=== PATIENT | male | born 1945 ===

== ENCOUNTER 2019-10-05 15:16 | Inpatient (IN) | payer MEDICARE ==
[2019-10-05] MEDS: Latanoprost 0.005% Ophth Soln 2.5 ml Bottle EA EYE SCH (21:00)
[2019-10-05] MEDS: Artificial Tear Sol 15 ML BOT L EYE SCH (21:00)
[2019-10-05] MEDS: Rosuvastatin 10 MG TAB PO SCH (21:00)
[2019-10-05] MEDS: levETIRAcetam 500 mg/5 ml Oral Solution PO SCH (21:01)
[2019-10-05] MEDS: CEFPODOXIME PROXETIL 200 MG PO SCH (21:06)
[2019-10-05] MEDS: VORICONAZOLE 200 MG PO SCH (21:06)
[2019-10-06 00:44] LABS: Bilirubin Negative (Negative); Blood, Urine Negative (Negative); Clarity Clear (Clear); Glucose, Urine (Dipstick) Negative (Negative); Leukocyte Negative (Negative); Nitrite Negative (Negative); Protein, Urine (Dipstick) Negative (Neg-Trace); Urobilinogen 0.2 mg/dL (Less than 2)
[2019-10-06 00:48] LABS: Bacteria/HPF None Seen HPF (None Seen); RBC/HPF None Seen HPF (0-3); Squamous Epithelial 0-3 HPF (0-3); Urine Culture Reflex No No; WBC/HPF None Seen HPF (0-3)
[2019-10-06 05:39] LABS: ALT (SGPT) 12 U/L (8-55); AST (SGOT) 19 U/L (5-34); Albumin 3.1 g/dL (3.4-4.8); Alkaline Phosphatase 94 U/L (40-110); Anion Gap 14 mmol/L (10-20); BUN (Urea Nitrogen) 16 mg/dL (8.4-25.7); Bilirubin, Total 0.4 mg/dL (0.2-1.2); Calc. Creatinine Clearance 84 mL/min (70-130); Carbon Dioxide 23 mmol/L (23-31); Chloride 105 mmol/L (98-107); Estimated GFR-MDRD 66; Globulin 1.9 g/dL (2.4-3.5); Glucose 110 mg/dL (83-110); Sodium 138 mmol/L (136-145)
[2019-10-06] MEDS: levETIRAcetam 500 mg/5 ml Oral Solution PO SCH ×2 (08:48→20:56)
[2019-10-06] MEDS: valACYclovir 500 MG TAB PO SCH (08:49)
[2019-10-06] MEDS: VENETOCLAX 100 MG PO SCH (08:51)
[2019-10-06] MEDS: CEFPODOXIME PROXETIL 200 MG PO SCH ×2 (08:52→20:56)
[2019-10-06] MEDS: PONATINIB HCL PO SCH (08:53)
[2019-10-06] MEDS: VORICONAZOLE 200 MG PO SCH ×2 (08:54→20:55)
--- NOTE | 2019-10-06 18:41 | HP ---
PRINCIPAL DIAGNOSIS: Persistent deconditioning, for physical therapy. HISTORY OF PRESENTING ILLNESS: This is a pleasant 74-year-old male, who was recently at [facility] in [place] and was discharged to home. He apparently has not been able to do his activities of daily living without significant help, and his son felt that he may benefit from some more therapy, and so, it was decided to admit him directly to skilled bed. The patient is currently resting in bed, and he denies any complaints. His family is not in the room. PAST MEDICAL HISTORY: 1. Paraneoplastic syndrome. 2. History of DVT, status post IVC filter placement. 3. History of pulmonary embolism. 4. Acute lymphocytic leukemia. 5. Chemotherapy-induced neuropathy and myopathy. 6. Anemia of chronic disease. 7. Glaucoma. 8. Dyslipidemia. 9. Seizure disorder. PAST SURGICAL HISTORY: 1. IVC filter placement. 2. Stem-cell transplantation. PSYCHOSOCIAL HISTORY: He lives in the [facility]. Denies any current tobacco, alcohol, or recreational drug abuse. FAMILY HISTORY: Positive for chronic kidney disease and congestive heart failure. ALLERGIES: NO KNOWN DRUG ALLERGIES. MEDICATIONS: He apparently takes: 1. Valtrex 500 mg daily. 2. Keppra 750 mg b.i.d. 3. Protonix 40 mg b.i.d. 4. Iclusig 15 mg daily. 5. Oxycodone 10 mg q.8 hours. 6. Voriconazole 200 mg b.i.d. 7. Travatan eye drops at bedtime. 8. Crestor 5 mg daily. 9. Metoprolol succinate 12.5 mg b.i.d. REVIEW OF SYSTEMS: CARDIOVASCULAR: Denies any chest pain, shortness of breath, PND, orthopnea, or pedal edema. RESPIRATORY: Denies any chronic cough, expectoration, or pleuritic-type chest pain. GASTROINTESTINAL: Denies any nausea, vomiting, diarrhea, constipation, hematemesis, melena, or hematochezia. GENITOURINARY: Denies any frequency, urgency, dysuria, or hematuria. CENTRAL NERVOUS SYSTEM: Generalized weakness. He also had some episodes of lower extremity weakness, which is slowly improving. Denies any recent seizures. EXTREMITIES: Occasional joint pains. HEENT: Denies any changes with speech, vision, hearing, or swallowing. SKIN: Denies any rash. PSYCHIATRIC: Denies any homicidal or suicidal ideations. Denies any depressive or anxiety symptoms. PHYSICAL EXAMINATION: GENERAL: This is a pleasant 74-year-old male, who is resting comfortably in bed and denies any complaints. He is alert, awake, and oriented. VITAL SIGNS: He is afebrile. Heart rate 80, respirations 18, oxygen saturation 95% on room air, blood pressure 108/55. HEENT: Normocephalic and atraumatic. Pupils are equally reactive to light and accommodation. NECK: No JVD, thyromegaly, cervical lymphadenopathy, or throat exudates. No carotid bruits. CARDIOVASCULAR: S1 and S2 plus. RESPIRATORY: Normal vesicular breath sounds. ABDOMEN: Soft and nontender. Bowel sounds heard in all quadrants. EXTREMITIES: Without cyanosis or clubbing. Trace edema. Peripheral pulses are palpable. CENTRAL NERVOUS SYSTEM: Awake and responsive. Cranial nerves 2 through 12 grossly intact. Generalized weakness. LABORATORY VALUES: Sodium 138, potassium 4.0, BUN and creatinine 16 and 1.10. Urinalysis, unremarkable. He was supposed to get a CBC, which was not done. IMPRESSION: 1. Possible resolving urinary tract infection. 2. Acute lymphocytic leukemia. 3. Chemotherapy-induced neuropathy and myopathy. 4. Seizure disorder. 5. Dyslipidemia. 6. History of deep venous thrombosis and pulmonary embolism. PLAN: 1. Continue home medications. 2. Nutritional support. 3. DVT prophylaxis with PlexiPulses. 4. Decubitus precautions. 5. Stress ulcer prophylaxis. 6. PT and OT eval and treat. 7. Routine laboratory values. 8. Discussed with the patient in detail. All questions answered. 9. No family at bedside. Job ID: [id number]
[2019-10-06] MEDS: Latanoprost 0.005% Ophth Soln 2.5 ml Bottle EA EYE SCH (20:55)
[2019-10-06] MEDS: Artificial Tear Sol 15 ML BOT L EYE SCH (20:55)
[2019-10-06] MEDS: Rosuvastatin 10 MG TAB PO SCH (20:58)
[2019-10-07 05:46] LABS: Band 6 % (5-11); Hemoglobin 9.2 g/dL (14.0-18.0); Hypochromia MODERATE=16-30 cells (100X) (0-5/hpf); Lymphocytes 28 % (21-51); MDiff Complete? YES; Mean Corpuscular HGB CONC 32.8 g/dL (32.0-36.0); Mean Corpuscular Hemoglobin 27.5 pg (27.0-31.0); Mean Corpuscular Volume 83.9 fL (78.0-98.0); Mean Platelet Volume 7.6 fL (7.4-10.4); Microcytosis MODERATE=15-30 cells (100X) (0-5/hpf); Monocytes 24 % (0-10); Neutrophil 42 % (42-75); Ovalocytes MODERATE= 6-15 cells (100X) (0-1/hpf); Platelet Count 68 thou/uL (130-400); Platelet Morphology Comment Appears Decreased; RBC Distribution Width 17.2 % (11.5-14.5); Red Blood Cell (RBC) Count 3.35 mill/uL (4.70-6.10); Spherocytes SLIGHT = 1-5 cells (100X) (None Seen); Tear Drops SLIGHT = 2-5 cells (100X) (0-1/hpf)
[2019-10-07] MEDS: valACYclovir 500 MG TAB PO SCH (08:00)
[2019-10-07] MEDS: levETIRAcetam 500 mg/5 ml Oral Solution PO SCH ×2 (08:01→21:26)
[2019-10-07] MEDS: PONATINIB HCL PO SCH (08:02)
[2019-10-07] MEDS: VORICONAZOLE 200 MG PO SCH ×2 (08:03→21:22)
[2019-10-07] MEDS: VENETOCLAX 100 MG PO SCH (08:04)
[2019-10-07] MEDS: CEFPODOXIME PROXETIL 200 MG PO SCH ×2 (10:21→21:23)
[2019-10-07] MEDS ORDERED: Chloraseptic Spray 180 ml Bottle PO PRN (14:49)
--- NOTE | 2019-10-07 15:22 | PRG ---
DATE OF SERVICE: 10/07/2019 SUBJECTIVE: Mr. Gao is resting comfortably. He is noticing occasional sore throat. He states it is worse in the morning, but then it gets better. He denies any fever or chills. He apparently had an appointment at [facility], which he canceled. Apparently, he spoke with his oncologist and they state that his therapy is more important. OBJECTIVE: VITAL SIGNS: He had a T-max of 100.2, this was last night; this morning, he is afebrile. Heart rate 80, respirations 20, oxygen saturation 96% on room air, blood pressure 99/57. CARDIOVASCULAR: S1 and S2 plus. RESPIRATORY: Normal vesicular breath sounds. ABDOMEN: Soft, nontender. Bowel sounds heard in all quadrants. EXTREMITIES: Without cyanosis or clubbing. CENTRAL NERVOUS SYSTEM: Grossly nonfocal. LABORATORY DATA: CBC done this morning shows a white count of 2, hemoglobin and hematocrit are 9.2 and 28.1 with a platelet count of 68, and 42% bands. IMPRESSION: 1. Acute lymphocytic leukemia. 2. Pancytopenia, likely due to chemotherapy. 3. Generalized weakness. 4. Paraneoplastic syndrome. 5. History of deep venous thrombosis and pulmonary embolism, status post inferior vena cava filter placement. 6. Anemia of chronic disease. 7. Dyslipidemia. 8. Seizure disorder. PLAN: 1. Continue current medications. 2. Nutritional support. 3. Start Chloraseptic spray as needed. 4. Monitor for any signs of infection. 5. Monitor blood counts closely. 6. Continue PT/OT eval and treat. 7. Discussed with the patient in detail. No family at bedside. Also seizure precautions. Job ID: [id number]
[2019-10-07] MEDS: oxyCODONE 5 MG TAB PO PRN (17:03)
[2019-10-07] MEDS: Artificial Tear Sol 15 ML BOT L EYE SCH (21:21)
[2019-10-07] MEDS: Latanoprost 0.005% Ophth Soln 2.5 ml Bottle EA EYE SCH (21:22)
[2019-10-07] MEDS: Rosuvastatin 10 MG TAB PO SCH (21:25)
[2019-10-08] MEDS: levETIRAcetam 500 mg/5 ml Oral Solution PO SCH ×2 (09:37→21:23)
[2019-10-08] MEDS: valACYclovir 500 MG TAB PO SCH (09:37)
[2019-10-08] MEDS: VENETOCLAX 100 MG PO SCH (09:40)
[2019-10-08] MEDS: PONATINIB HCL PO SCH (09:43)
[2019-10-08] MEDS: VORICONAZOLE 200 MG PO SCH ×2 (09:43→23:28)
[2019-10-08] MEDS: CEFPODOXIME PROXETIL 200 MG PO SCH ×2 (09:52→23:29)
--- NOTE | 2019-10-08 13:25 | PRG ---
DATE OF SERVICE: 10/08/2019 SUBJECTIVE: Mr. Gao is up on the side of his bed eating lunch. He denies any questions or concerns. He is happy with his progress. He has full session of therapy this morning. He is wondering if he can go to his oncologist in [place] to get his lumbar puncture versus clinical trial and whether he can be laid out and I advised him that should not be an issue. I discussed with him about code status and right now he states that unless we can deem him to not recover he wants everything done, so we will leave him a full code. OBJECTIVE: VITAL SIGNS: The patient is afebrile, heart rate 77, respirations 18, oxygen saturation 95% on room air, and blood pressure 100/55. CARDIOVASCULAR: S1 and S2 plus. RESPIRATORY: Normal vesicular breath sounds. ABDOMEN: Soft and nontender. Bowel sounds heard in all quadrants. EXTREMITIES: Without cyanosis or clubbing. SKIN: Scalp lesion with dressing. IMPRESSION: 1. Acute lymphocytic leukemia. 2. Anemia of chronic disease. 3. Pancytopenia, likely related to chemotherapy. 4. Deconditioning. 5. Paraneoplastic syndrome. 6. History of deep venous thrombosis and pulmonary embolism. 7. Dyslipidemia. 8. Seizure disorder. PLAN: 1. Continue current medications. We will check with the patient as to how long he is supposed on the antibiotic. 2. Nutritional support. 3. Seizure precautions. 4. DVT and stress ulcer prophylaxis. 5. Decubitus precautions. 6. Physical therapy. 7. Recheck CBC in the morning. Job ID: [id number]
[2019-10-08] MEDS: Artificial Tear Sol 15 ML BOT L EYE SCH (21:22)
[2019-10-08] MEDS: Latanoprost 0.005% Ophth Soln 2.5 ml Bottle EA EYE SCH (21:23)
[2019-10-08] MEDS: Rosuvastatin 10 MG TAB PO SCH (21:24)
[2019-10-09 06:51] LABS: Hemoglobin 12.2 g/dL (14.0-18.0); Mean Corpuscular HGB CONC 33.4 g/dL (32.0-36.0); Mean Corpuscular Volume 83.7 fL (78.0-98.0); Mean Platelet Volume 8.3 fL (7.4-10.4); Platelet Count 51 thou/uL (130-400); RBC Distribution Width 17.6 % (11.5-14.5); Red Blood Cell (RBC) Count 4.37 mill/uL (4.70-6.10); White Blood Cell (WBC) Count 2.7 thou/uL (4.8-10.8)
[2019-10-09 07:04] LABS: Band 2 % (5-11); Lymphocytes 21 % (21-51); MDiff Complete? YES; Monocytes 13 % (0-10); Neutrophil 64 % (42-75); Platelet Morphology Comment Appears Decreased
[2019-10-09 07:55] LABS: Anisocytosis SLIGHT = 6-15 cells (100X) (0-5/hpf)
[2019-10-09 07:56] LABS: Hypochromia SLIGHT = 6-15 cells (100X) (0-5/hpf); Ovalocytes SLIGHT = 2-5 cells (100X) (0-1/hpf); Spherocytes SLIGHT = 1-5 cells (100X) (None Seen)
[2019-10-09 07:57] LABS: Microcytosis SLIGHT = 6-15 cells (100X) (0-5/hpf)
[2019-10-09] MEDS: levETIRAcetam 500 mg/5 ml Oral Solution PO SCH ×2 (08:48→20:43)
[2019-10-09] MEDS: valACYclovir 500 MG TAB PO SCH (08:48)
[2019-10-09] MEDS: VORICONAZOLE 200 MG PO SCH ×2 (08:49→20:45)
[2019-10-09] MEDS: PONATINIB HCL PO SCH (08:49)
[2019-10-09] MEDS: CEFPODOXIME PROXETIL 200 MG PO SCH ×2 (08:49→20:45)
[2019-10-09] MEDS: VENETOCLAX 100 MG PO SCH (09:02)
--- NOTE | 2019-10-09 13:33 | PRG ---
DATE OF SERVICE: 10/09/2019 SUBJECTIVE: Mr. Gao is resting in bed. He just finished his lunch. He denies any questions or concerns. His oncologist apparently called and wanted one of his chemotherapeutic agents, which is venetoclax discontinued. I checked with him as to why he is on the antibiotic, Vantin, and he said Vantin and the antifungal were started recently when he was diagnosed with UTI. So, plan is to have him finish 7 days of it here and then discontinue the Vantin. We will do a repeat urine culture. OBJECTIVE: VITAL SIGNS: He is afebrile. Heart rate 71, respirations 18, oxygen saturation 95% on room air, blood pressure 118/56. CARDIOVASCULAR: S1 and S2 plus. RESPIRATORY: Normal vesicular breath sounds. ABDOMEN: Soft and nontender. Bowel sounds heard in all quadrants. EXTREMITIES: Without cyanosis or clubbing. CENTRAL NERVOUS SYSTEM: Improving deconditioning. LABORATORY VALUES: His white count is up to 2.7, H and H are much improved at 12.2 and 36.5, platelet count is down at 51. Sodium 138, potassium 4.0, BUN and creatinine 16 and 1.10. IMPRESSION: 1. Acute lymphocytic leukemia. 2. Resolving urinary tract infection. 3. Deconditioning. 4. Improving pancytopenia. 5. Paraneoplastic syndrome. 6. History of deep venous thrombosis and pulmonary embolism. 7. Dyslipidemia. 8. Seizure disorder. PLAN: 1. Continue current medications. 2. Nutritional support. 3. Deep venous thrombosis prophylaxis. 4. Decubitus precautions. 5. Stress ulcer prophylaxis. 6. Physical therapy. 7. Seizure precautions. 8. Stop Vantin after 7 days of therapy here. Job ID: [id number]
[2019-10-09] MEDS: Latanoprost 0.005% Ophth Soln 2.5 ml Bottle EA EYE SCH (20:43)
[2019-10-09] MEDS: Artificial Tear Sol 15 ML BOT L EYE SCH (20:43)
[2019-10-09] MEDS: Rosuvastatin 10 MG TAB PO SCH (20:44)
[2019-10-10] MEDS: levETIRAcetam 500 mg/5 ml Oral Solution PO SCH ×2 (08:25→20:41)
[2019-10-10] MEDS: valACYclovir 500 MG TAB PO SCH (08:27)
[2019-10-10] MEDS: CEFPODOXIME PROXETIL 200 MG PO SCH ×2 (08:30→20:43)
[2019-10-10] MEDS: VORICONAZOLE 200 MG PO SCH ×2 (08:30→20:45)
[2019-10-10] MEDS: PONATINIB HCL PO SCH (08:35)
--- NOTE | 2019-10-10 13:00 | PRG ---
DATE OF SERVICE: 10/10/2019 SUBJECTIVE: Mr. Gao is up in his chair. He is happy with his progress. He feels like he is getting stronger. Apparently, his research trial nurse wants some lab work done. He is not sure what it is. He is going to find out and let us know. I advised him that I have ordered a urine culture to make sure his infection has cleared up before I stop his antibiotic and his antifungal. OBJECTIVE: VITAL SIGNS: He is afebrile. Heart rate 66, respirations 18, oxygen saturation 97%, blood pressure 117/64. CARDIOVASCULAR SYSTEM: S1 and S2 plus. RESPIRATORY SYSTEM: Normal vesicular breath sounds. ABDOMEN: Soft and nontender. Bowel sounds heard in all quadrants. EXTREMITIES: Without cyanosis or clubbing. LABORATORY VALUES: None done today. IMPRESSION: 1. Acute lymphocytic leukemia. 2. History of deep vein thrombosis and pulmonary embolism. 3. Pancytopenia. 4. Improving deconditioning. 5. Paraneoplastic syndrome. 6. Dyslipidemia. 7. Seizure disorder. PLAN: 1. Continue current medications. 2. Nutritional support. 3. DVT prophylaxis. 4. Decubitus precautions. 5. Stress ulcer prophylaxis. 6. Physical therapy. 7. Await urine culture. 8. Await lab orders from his trial nurse. Continue therapy. Job ID: [id number]
[2019-10-10] MEDS: Artificial Tear Sol 15 ML BOT L EYE SCH (20:41)
[2019-10-10] MEDS: Latanoprost 0.005% Ophth Soln 2.5 ml Bottle EA EYE SCH (20:41)
[2019-10-10] MEDS: Rosuvastatin 10 MG TAB PO SCH (20:42)
[2019-10-11] MEDS: levETIRAcetam 500 mg/5 ml Oral Solution PO SCH ×2 (08:27→21:46)
[2019-10-11] MEDS: valACYclovir 500 MG TAB PO SCH (08:28)
[2019-10-11] MEDS: VORICONAZOLE 200 MG PO SCH ×2 (08:28→21:43)
[2019-10-11] MEDS: PONATINIB HCL PO SCH (08:29)
[2019-10-11] MEDS: CEFPODOXIME PROXETIL 200 MG PO SCH ×2 (08:29→21:43)
--- NOTE | 2019-10-11 11:35 | PRG ---
DATE OF SERVICE: 10/11/2019 SUBJECTIVE: Mr. Gao is up in bed. He denies any complaints. Apparently, his clinical trial nurse gave a list of blood work that he has given to the nurses to draw and fax it back. Still has an occasional cough, but no fever or chills. No expectoration. No family at bedside. OBJECTIVE: VITAL SIGNS: He is afebrile. Heart rate 60, respirations 20, oxygen saturation 95% on room air, blood pressure 122/67. CARDIOVASCULAR: S1 and S2 plus. RESPIRATORY: Normal vesicular breath sounds. ABDOMEN: Soft and nontender. Bowel sounds heard in all quadrants. EXTREMITIES: Without cyanosis or clubbing. CENTRAL NERVOUS SYSTEM: Improving deconditioning. IMPRESSION: 1. Acute lymphocytic leukemia. 2. History of deep venous thrombosis and pulmonary embolism. 3. Pancytopenia. 4. Paraneoplastic syndrome. 5. Dyslipidemia. 6. Seizure disorder. PLAN: 1. Continue current medications. 2. Heart-healthy diet. 3. DVT and stress ulcer prophylaxis. 4. Do the lab work requested by the clinical trial nurse and fax it back to them. 5. Physical therapy. 6. Discussed with the patient in detail. All questions answered. Job ID: [id number]
--- NOTE | 2019-10-11 17:57 | RAD ---
PORTABLE CHEST ONE VIEW: 10/11/19 at 5:44 p.m. HISTORY: Cough, left lung wheezing. FINDINGS/IMPRESSION: Pleural and parenchymal changes are redemonstrated. The heart size is stable. The aorta is tortuous. Calcified granuloma in the right lung is again seen. No new focal areas of consolidation, pneumothora prisca, or large effusions are seen. POS: OFF
[2019-10-11] MEDS: Latanoprost 0.005% Ophth Soln 2.5 ml Bottle EA EYE SCH (21:43)
[2019-10-11] MEDS: Artificial Tear Sol 15 ML BOT L EYE SCH (21:43)
[2019-10-11] MEDS: Rosuvastatin 10 MG TAB PO SCH (21:44)
[2019-10-11] MEDS: Oseltamivir 75 MG CAP PO SCH (21:44)
[2019-10-12] MEDS: levETIRAcetam 500 mg/5 ml Oral Solution PO SCH ×2 (08:57→21:17)
[2019-10-12] MEDS: Oseltamivir 75 MG CAP PO SCH ×2 (09:00→21:18)
[2019-10-12] MEDS: valACYclovir 500 MG TAB PO SCH (09:00)
[2019-10-12] MEDS: CEFPODOXIME PROXETIL 200 MG PO SCH ×2 (09:04→21:16)
[2019-10-12] MEDS: VORICONAZOLE 200 MG PO SCH ×2 (09:07→21:16)
[2019-10-12] MEDS: PONATINIB HCL PO SCH (15:28)
[2019-10-12] MEDS: Latanoprost 0.005% Ophth Soln 2.5 ml Bottle EA EYE SCH (21:13)
[2019-10-12] MEDS: Artificial Tear Sol 15 ML BOT L EYE SCH (21:13)
[2019-10-12] MEDS: Rosuvastatin 10 MG TAB PO SCH (21:17)
[2019-10-13] MEDS: VORICONAZOLE 200 MG PO SCH ×2 (08:47→20:43)
[2019-10-13] MEDS: CEFPODOXIME PROXETIL 200 MG PO SCH ×2 (08:48→20:43)
[2019-10-13] MEDS: valACYclovir 500 MG TAB PO SCH (08:49)
[2019-10-13] MEDS: PONATINIB HCL PO SCH (08:49)
[2019-10-13] MEDS: levETIRAcetam 500 mg/5 ml Oral Solution PO SCH ×2 (08:50→20:40)
[2019-10-13] MEDS: Oseltamivir 75 MG CAP PO SCH ×2 (08:50→20:42)
--- NOTE | 2019-10-13 09:56 | PRG ---
DATE OF SERVICE: 10/12/2019 SUBJECTIVE: The patient feels well with decreasing cough, myalgias. No fever or chills, on Tamiflu for documented influenza A with chest x-ray showing no evidence of pneumonia. OBJECTIVE: VITAL SIGNS: Shows temperature is 96.7, pulse 59, respirations 20, O2 sats 98% on room air, and blood pressure 104/60. LUNGS: Clear. CARDIAC: Shows regular rhythm. ABDOMEN: Soft and nontender. ASSESSMENT: 1. Resolving influenza A on Tamiflu in isolation. 2. Acute lymphocytic leukemia, status post chemotherapy in isolation. 3. History of deep venous thrombosis and pulmonary embolism, on no anticoagulation secondary to no recurrence. 4. Chemotherapy-induced neuropathy and myopathy, resolving. 5. IVC placement. PLAN: 1. Continue Tamiflu for full 5-day course. 2. Continue isolation. 3. Follow up with [facility] when stronger. 4. Continue prophylaxis with Valtrex and voriconazole. 5. Repeat CBC to document stable blood count. Job ID: [id number]
--- NOTE | 2019-10-13 09:56 | PRG ---
DATE OF SERVICE: 10/13/2019 HISTORY OF PRESENT ILLNESS: The patient is a 74-year-old white male with a history of acute lymphocytic leukemia, had difficulty maintaining ADLs after chemotherapy induced neuropathy and myopathy and has been found to have new diagnosis of influenza A, which is responding to treatment and he is preparing for discontinuation of isolation and reinstitution of PT. OBJECTIVE: VITAL SIGNS: Temperature is 96.5, pulse 65, respirations 18, O2 saturations 94% on room air, blood pressure 123/61. LUNGS: Clear. CARDIAC: Regular rhythm. ABDOMEN: Soft, nontender. SKIN/EXTREMITIES: No edema. ASSESSMENT: 1. Resolving influenza A. 2. Stable acute lymphocytic leukemia, status post chemotherapy with repeat CBC and comprehensive metabolic today. 3. Improving deconditioning, ready for more therapy tomorrow. Job ID: [id number]
[2019-10-13 11:05] LABS: ALT (SGPT) 11 U/L (8-55); AST (SGOT) 21 U/L (5-34); Albumin 3.3 g/dL (3.4-4.8); Alkaline Phosphatase 137 U/L (40-110); Anion Gap 14 mmol/L (10-20); BUN (Urea Nitrogen) 11 mg/dL (8.4-25.7); Bilirubin, Total 0.4 mg/dL (0.2-1.2); Calc. Creatinine Clearance 129 mL/min (70-130); Calcium 8.1 mg/dL (7.8-10.44); Carbon Dioxide 22 mmol/L (23-31); Chloride 111 mmol/L (98-107); Estimated GFR-MDRD Greater than 90; Globulin 2.2 g/dL (2.4-3.5); Glucose 109 mg/dL (83-110); Potassium 4.2 mmol/L (3.5-5.1); Protein, Total 5.5 g/dL (5.8-8.1); Sodium 143 mmol/L (136-145)
[2019-10-13 11:43] LABS: Hemoglobin 10.8 g/dL (14.0-18.0); Mean Corpuscular HGB CONC 32.7 g/dL (32.0-36.0); Mean Corpuscular Hemoglobin 27.6 pg (27.0-31.0); Mean Corpuscular Volume 84.5 fL (78.0-98.0); Mean Platelet Volume 10.1 fL (7.4-10.4); Platelet Count 85 thou/uL (130-400); RBC Distribution Width 17.9 % (11.5-14.5); Red Blood Cell (RBC) Count 3.89 mill/uL (4.70-6.10); White Blood Cell (WBC) Count 2.9 thou/uL (4.8-10.8)
[2019-10-13 12:13] LABS: Anisocytosis MODERATE=16-30 cells (100X) (0-5/hpf); Lymphocytes 33 % (21-51); MDiff Complete? YES; Microcytosis SLIGHT = 6-15 cells (100X) (0-5/hpf); Monocytes 8 % (0-10); Neutrophil 59 % (42-75); Ovalocytes MODERATE= 6-15 cells (100X) (0-1/hpf); Platelet Morphology Comment Appears Decreased
[2019-10-13] MEDS: Latanoprost 0.005% Ophth Soln 2.5 ml Bottle EA EYE SCH (20:38)
[2019-10-13] MEDS: oxyCODONE 5 MG TAB PO PRN (20:39)
[2019-10-13] MEDS: Artificial Tear Sol 15 ML BOT L EYE SCH (20:39)
[2019-10-13] MEDS: Rosuvastatin 10 MG TAB PO SCH (20:42)
[2019-10-14] MEDS ORDERED: Metoprolol Tartrate 25 MG TAB ONE ×2 (07:58→20:11)
[2019-10-14] MEDS: Oseltamivir 75 MG CAP PO SCH ×2 (09:32→21:06)
[2019-10-14] MEDS: valACYclovir 500 MG TAB PO SCH (09:32)
[2019-10-14] MEDS: levETIRAcetam 500 mg/5 ml Oral Solution PO SCH ×2 (09:33→21:04)
[2019-10-14] MEDS: CEFPODOXIME PROXETIL 200 MG PO SCH ×2 (09:40→21:07)
[2019-10-14] MEDS: VORICONAZOLE 50 MG PO SCH ×2 (09:41→21:06)
[2019-10-14] MEDS: PONATINIB HCL PO SCH (09:43)
--- NOTE | 2019-10-14 20:22 | PRG ---
DATE OF SERVICE: 10/14/[address] Yuko Braswell. SUBJECTIVE: The patient feels much better. No further cough. No shortness of breath. He is maintaining ADLs in isolation and is ready to do more therapy. He has underlying history of acute lymphocytic leukemia with chemotherapy-induced neuropathy and myopathy and is wishing to increase his strength. OBJECTIVE: VITAL SIGNS: Shows temperature is 98, pulse 62, respirations 16, O2 saturations 98% on room air, blood pressure 128/68. LABORATORY DATA: White count 2900, hematocrit 32, hemoglobin 10, platelet count 85,000 all improving. Sodium 143, potassium 4.2, chloride 111, bicarb 22, BUN 11, creatinine 0.72, glucose 109, calcium 8.1, AST 21, ALT 11, albumin 3.3, total protein 5.5, globulin 2.2. ASSESSMENT: 1. Resolving influenza A on Tamiflu third day. No further cough. No sweats, chills, or fever. 2. Chemotherapy-induced neuropathy and myopathy, ready to do more PT/OT. 3. Acute lymphocytic leukemia, stable at this time, off chemotherapy. 4. Seizure disorder with no evidence of recurrence. 5. History of deep venous thrombosis, status post IVC filter. PLAN: 1. Continue Tamiflu to finish 5-day course. Consider discontinuation of isolation because of no cough and on Tamiflu. 2. Continue PT/OT. 3. Dr. Braswell will be back tonight. Job ID: [id number]
[2019-10-14] MEDS: Artificial Tear Sol 15 ML BOT L EYE SCH (21:04)
[2019-10-14] MEDS: Rosuvastatin 10 MG TAB PO SCH (21:07)
[2019-10-15] MEDS: Latanoprost 0.005% Ophth Soln 2.5 ml Bottle EA EYE SCH ×2 (00:04→21:45)
[2019-10-15] MEDS: levETIRAcetam 500 mg/5 ml Oral Solution PO SCH ×2 (09:43→21:41)
[2019-10-15] MEDS: valACYclovir 500 MG TAB PO SCH (09:47)
[2019-10-15] MEDS: Voriconazole 50 MG TAB PO SCH ×2 (09:51→21:46)
[2019-10-15] MEDS: Oseltamivir 75 MG CAP PO SCH ×2 (09:55→21:43)
[2019-10-15] MEDS: CEFPODOXIME PROXETIL 200 MG PO SCH (09:56)
[2019-10-15] MEDS: PONATINIB HCL PO SCH (10:04)
--- NOTE | 2019-10-15 14:05 | PRG ---
DATE OF SERVICE: 10/15/2019 SUBJECTIVE: Mr. Gao is resting in the room. He denies any complaints other than his food being cold. He is tolerating his Tamiflu. Denies any fever or chills. He apparently has an appointment with his cancer doctors on and needs to be out on pass. OBJECTIVE: VITAL SIGNS: He is afebrile. Heart rate is 72, respirations 18, oxygen saturation 97% on room air, blood pressure 129/64. CARDIOVASCULAR: S1 and S2 plus. RESPIRATORY: Normal vesicular breath sounds. ABDOMEN: Soft and nontender. Bowel sounds heard in all quadrants. EXTREMITIES: Without cyanosis or clubbing. CENTRAL NERVOUS SYSTEM: Improving deconditioning. IMPRESSION: 1. Resolving influenza. 2. No further signs of urinary tract infection. Vantin. 3. Acute lymphocytic leukemia. 4. Paraneoplastic syndrome. 5. History of deep venous thrombosis and pulmonary embolism. 6. Improving deconditioning. 7. Improving pancytopenia. PLAN: 1. Continue current medications, but stop Vantin. 2. Continue therapy. 3. Droplet precautions for 5 days since starting the Tamiflu. 4. Physical therapy. 5. Nutritional support. Informed nursing the patient is concerned about his food being cold. 6. Routine laboratory values. Job ID: [id number]
[2019-10-15] MEDS: Rosuvastatin 10 MG TAB PO SCH (21:43)
[2019-10-15] MEDS: Artificial Tear Sol 15 ML BOT L EYE SCH (21:46)
[2019-10-16] MEDS: Oseltamivir 75 MG CAP PO SCH (09:50)
[2019-10-16] MEDS: PONATINIB HCL PO SCH (09:55)
[2019-10-16] MEDS: valACYclovir 500 MG TAB PO SCH (09:55)
[2019-10-16] MEDS: levETIRAcetam 500 mg/5 ml Oral Solution PO SCH ×2 (09:55→20:58)
[2019-10-16] MEDS: Voriconazole 50 MG TAB PO SCH ×2 (10:24→21:55)
--- NOTE | 2019-10-16 14:06 | PRG ---
DATE OF SERVICE: 10/16/2019 SUBJECTIVE: Mr. Gao is resting comfortably. Denies any complaints. He should be coming off his droplet isolation after he takes his last dose of Tamiflu. He has been doing well. No fever. Tolerating his therapy. OBJECTIVE: VITAL SIGNS: He is afebrile. Heart rate 67, respirations 18, oxygen saturation 99% on room air, blood pressure 132/68. CARDIOVASCULAR: S1 and S2 plus. RESPIRATORY: Normal vesicular breath sounds. ABDOMEN: Soft and nontender. Bowel sounds heard in all quadrants. EXTREMITIES: Without cyanosis or clubbing. CENTRAL NERVOUS SYSTEM: Improving deconditioning. IMPRESSION: 1. Acute lymphocytic leukemia. 2. Paraneoplastic syndrome. 3. History of deep venous thrombosis and pulmonary embolism. 4. Pancytopenia. 5. Resolving influenza. PLAN: 1. Continue current medications. 2. Nutritional support. 3. DVT and stress ulcer prophylaxis. 4. Decubitus precautions. 5. Physical therapy. 6. Routine laboratory values. 7. Has appointment with his oncologist on . Informed nursing to allow the patient to go out on pass. Job ID: [id number]
[2019-10-16] MEDS: Rosuvastatin 10 MG TAB PO SCH (20:57)
[2019-10-16] MEDS: Latanoprost 0.005% Ophth Soln 2.5 ml Bottle EA EYE SCH (20:58)
[2019-10-16] MEDS: Artificial Tear Sol 15 ML BOT L EYE SCH (20:58)
[2019-10-17] MEDS: valACYclovir 500 MG TAB PO SCH (09:24)
[2019-10-17] MEDS: PONATINIB HCL PO SCH (09:25)
[2019-10-17] MEDS: levETIRAcetam 500 mg/5 ml Oral Solution PO SCH ×2 (09:26→20:11)
[2019-10-17] MEDS: Voriconazole 50 MG TAB PO SCH ×2 (09:27→20:12)
[2019-10-17] MEDS ORDERED: Voriconazole 50 MG TAB PO SCH ×2 (11:30→13:45)
--- NOTE | 2019-10-17 12:31 | PRG ---
DATE OF SERVICE: 10/17/2019 SUBJECTIVE: Mr. Gao is doing well. Denies any complaints. Resting comfortably. Denies any concerns or questions. Happy with his progress. He has his appointment with his oncologist tomorrow, and nursing is aware, and they already have him marked out for the pass. OBJECTIVE: VITAL SIGNS: He is afebrile. Heart rate 61, respirations 18, oxygen saturation 98% on room air, blood pressure 137/70. CARDIOVASCULAR: S1 and S2 plus. RESPIRATORY: Normal vesicular breath sounds. ABDOMEN: Soft and nontender. Bowel sounds heard in all quadrants. EXTREMITIES: Without cyanosis or clubbing. CENTRAL NERVOUS SYSTEM: Improving deconditioning. IMPRESSION: 1. Acute lymphocytic leukemia. 2. Paraneoplastic syndrome. 3. History of deep venous thrombosis and pulmonary embolism. 4. Resolved influenza. 5. Pancytopenia. 6. Improving deconditioning. PLAN: 1. Continue current medications. 2. Nutritional support. 3. DVT and stress ulcer prophylaxis. 4. Decubitus precautions. 5. Physical therapy. 6. Routine laboratory values. Job ID: [id number]
[2019-10-17] MEDS: oxyCODONE 5 MG TAB PO PRN (18:32)
[2019-10-17] MEDS ORDERED: Ondansetron ODT 4 MG TAB PO PRN (18:49)
[2019-10-17] MEDS: Artificial Tear Sol 15 ML BOT L EYE SCH (20:10)
[2019-10-17] MEDS: Latanoprost 0.005% Ophth Soln 2.5 ml Bottle EA EYE SCH (20:11)
[2019-10-17] MEDS: Rosuvastatin 10 MG TAB PO SCH (20:12)
[2019-10-18] MEDS: levETIRAcetam 500 mg/5 ml Oral Solution PO SCH ×2 (07:15→20:06)
[2019-10-18] MEDS: valACYclovir 500 MG TAB PO SCH (07:15)
[2019-10-18] MEDS: PONATINIB HCL PO SCH (07:16)
[2019-10-18] MEDS: Voriconazole 50 MG TAB PO SCH ×2 (07:17→20:08)
[2019-10-18] MEDS: Artificial Tear Sol 15 ML BOT L EYE SCH (20:05)
[2019-10-18] MEDS: Latanoprost 0.005% Ophth Soln 2.5 ml Bottle EA EYE SCH (20:06)
[2019-10-18] MEDS: Rosuvastatin 10 MG TAB PO SCH (20:08)
[2019-10-18] MEDS: Mupirocin 2% Ointment 22 GM Tube TOP SCH (23:14)
[2019-10-19] MEDS: PONATINIB HCL PO SCH (09:04)
[2019-10-19] MEDS: levETIRAcetam 500 mg/5 ml Oral Solution PO SCH ×2 (09:49→21:15)
[2019-10-19] MEDS: valACYclovir 500 MG TAB PO SCH ×2 (09:49→09:50)
[2019-10-19] MEDS: Voriconazole 50 MG TAB PO SCH ×3 (09:55→21:37)
[2019-10-19] MEDS: Mupirocin 2% Ointment 22 GM Tube TOP SCH ×2 (14:02→21:20)
[2019-10-19] MEDS: Latanoprost 0.005% Ophth Soln 2.5 ml Bottle EA EYE SCH (21:13)
[2019-10-19] MEDS: Artificial Tear Sol 15 ML BOT L EYE SCH (21:13)
[2019-10-19] MEDS: Rosuvastatin 10 MG TAB PO SCH (21:14)
[2019-10-19] MEDS ORDERED: Voriconazole 50 MG TAB PO SCH (21:30)
[2019-10-20] MEDS: Mupirocin 2% Ointment 22 GM Tube TOP SCH ×2 (05:41→21:23)
[2019-10-20] MEDS: levETIRAcetam 500 mg/5 ml Oral Solution PO SCH ×2 (09:09→21:23)
[2019-10-20] MEDS: oxyCODONE 5 MG TAB PO PRN ×2 (09:10→21:24)
[2019-10-20] MEDS: Voriconazole 50 MG TAB PO SCH ×2 (09:18→21:23)
[2019-10-20] MEDS: PONATINIB HCL PO SCH (09:21)
--- NOTE | 2019-10-20 15:50 | PRG ---
DATE OF SERVICE: 10/20/2019 SUBJECTIVE: Mr. Gao is resting. No therapy today. He denies any questions or concerns. He is still not sure of the surgery date for his squamous cell carcinoma excision. He will let us know as soon as he is aware so that we can make arrangements. OBJECTIVE: VITAL SIGNS: He is afebrile, heart rate 68, respirations 20, oxygen saturation 98% on room air, blood pressure 117/63. CARDIOVASCULAR SYSTEM: S1 and S2 plus. RESPIRATORY SYSTEM: Normal vesicular breath sounds. ABDOMEN: Soft, nontender. Bowel sounds heard in all quadrants. EXTREMITIES: Without cyanosis or clubbing. Scalp wound with dressing. IMPRESSION: 1. Acute lymphocytic leukemia. 2. Paraneoplastic syndrome. 3. History of deep venous thrombosis and pulmonary embolism. 4. Pancytopenia. 5. Improving deconditioning. 6. 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 7. Hypertension. 8. Dyslipidemia. PLAN: 1. Continue current medications. 2. Nutritional support. 3. Seizure precautions. 4. Heart-healthy diet. 5. DVT and stress ulcer prophylaxis. 6. Decubitus precautions. Job ID: [id number]
[2019-10-20] MEDS: Artificial Tear Sol 15 ML BOT L EYE SCH (21:21)
[2019-10-20] MEDS: Rosuvastatin 10 MG TAB PO SCH (21:22)
[2019-10-20] MEDS: Latanoprost 0.005% Ophth Soln 2.5 ml Bottle EA EYE SCH (21:22)
[2019-10-21 05:32] LABS: Anion Gap 13 mmol/L (10-20); BUN (Urea Nitrogen) 9 mg/dL (8.4-25.7); Calc. Creatinine Clearance 124 mL/min (70-130); Calcium 8.1 mg/dL (7.8-10.44); Carbon Dioxide 24 mmol/L (23-31); Chloride 108 mmol/L (98-107); Estimated GFR-MDRD Greater than 90; Glucose 97 mg/dL (83-110); Potassium 4.3 mmol/L (3.5-5.1); Sodium 141 mmol/L (136-145)
[2019-10-21 05:55] LABS: Anisocytosis MODERATE=16-30 cells (100X) (0-5/hpf); Band 12 % (5-11); Hemoglobin 9.7 g/dL (14.0-18.0); Hypochromia MODERATE=16-30 cells (100X) (0-5/hpf); Lymphocytes 19 % (21-51); MDiff Complete? YES; Mean Corpuscular Hemoglobin 28.2 pg (27.0-31.0); Mean Corpuscular Volume 83.1 fL (78.0-98.0); Mean Platelet Volume 7.5 fL (7.4-10.4); Monocytes 14 % (0-10); Neutrophil 49 % (42-75); Platelet Count 71 thou/uL (130-400); Platelet Morphology Comment Appears Decreased; Poikilocytosis MODERATE=16-30 cells (100X) (0-5/hpf); RBC Distribution Width 17.5 % (11.5-14.5); Reactive Lymphocytes 6 % (0-10); Red Blood Cell (RBC) Count 3.42 mill/uL (4.70-6.10); White Blood Cell (WBC) Count 2.4 thou/uL (4.8-10.8)
[2019-10-21] MEDS: levETIRAcetam 500 mg/5 ml Oral Solution PO SCH ×2 (08:45→21:38)
[2019-10-21] MEDS: Mupirocin 2% Ointment 22 GM Tube TOP SCH ×2 (08:46→21:41)
[2019-10-21] MEDS: PONATINIB HCL PO SCH (08:47)
[2019-10-21] MEDS: valACYclovir 500 MG TAB PO SCH (08:48)
[2019-10-21] MEDS: Voriconazole 50 MG TAB PO SCH ×2 (08:49→21:40)
--- NOTE | 2019-10-21 10:03 | PRG ---
DATE OF SERVICE: 10/19/2019 SUBJECTIVE: Mr. Gao is back from his visit with his oncologist. He came late yesterday evening. Apparently, no changes were made to his chemotherapy agents. He apparently was told that the squamous cell cancer on the right church is apparently enlarging and they need to get that removed as soon as possible, so the tentative date is October 25. No other questions or concerns. OBJECTIVE: VITAL SIGNS: The patient is afebrile, heart rate is 69, respirations 16, oxygen saturation 98% on room air, blood pressure 119/69. CARDIOVASCULAR: S1 and S2 plus. RESPIRATORY: Normal vesicular breath sounds. ABDOMEN: Soft, nontender. Bowel sounds heard in all quadrants. EXTREMITIES: Without cyanosis or clubbing. Scalp wound with dressing. CENTRAL NERVOUS SYSTEM: Improving deconditioning. IMPRESSION: 1. Acute lymphocytic leukemia. 2. Paraneoplastic syndrome. 3. Pancytopenia. 4. History of deep venous thrombosis and pulmonary embolism. 5. 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 PLAN: 1. Continue current medications. 2. Nutritional support. 3. DVT and stress ulcer prophylaxis. 4. Wound care. 5. Physical therapy. 6. Routine laboratory values. 7. Discussed with the patient in detail. All questions answered. Job ID: [id number]
--- NOTE | 2019-10-21 15:39 | PRG ---
DATE OF SERVICE: 10/21/2019 SUBJECTIVE: Mr. Gao is doing well. Denies significant complaints. Resting comfortably. He states that he has an appointment with [facility] tomorrow and his daughter is going to take him . OBJECTIVE: VITAL SIGNS: He is afebrile, heart rate 69, respirations 18, oxygen saturation 93% on room air, blood pressure 112/66. CARDIOVASCULAR SYSTEM: S1-S2 plus. RESPIRATORY SYSTEM: Normal vesicular breath sounds. ABDOMEN: Soft. Nontender. Bowel sounds heard in all quadrants. EXTREMITIES: Without cyanosis or clubbing. CENTRAL NERVOUS SYSTEM: Improving deconditioning. LABORATORY DATA: His CBC from this morning shows a white count of 2.4, H and H are 9.7 and 28.4, and platelet count is 71. Sodium 141, potassium 4.3, BUN and creatinine are 9 and 0.76. IMPRESSION: 1. Acute lymphocytic leukemia. 2. Paraneoplastic syndrome. 3. Pancytopenia. 4. History of deep vein thrombosis and pulmonary embolism. 5. Glaucoma. 6. Dyslipidemia. 7. Seizure disorder. PLAN: 1. Continue current medications. 2. Nutritional support. 3. DVT prophylaxis with PlexiPulses. 4. Decubitus precautions. 5. Stress ulcer prophylaxis. 6. Routine laboratory values. 7. Physical therapy. Job ID: [id number]
[2019-10-21] MEDS: oxyCODONE 5 MG TAB PO PRN (18:38)
[2019-10-21] MEDS: Latanoprost 0.005% Ophth Soln 2.5 ml Bottle EA EYE SCH (21:38)
[2019-10-21] MEDS: Artificial Tear Sol 15 ML BOT L EYE SCH (21:38)
[2019-10-21] MEDS: Rosuvastatin 10 MG TAB PO SCH (21:39)
[2019-10-22] MEDS: valACYclovir 500 MG TAB PO SCH (07:21)
[2019-10-22] MEDS: Mupirocin 2% Ointment 22 GM Tube TOP SCH ×2 (07:22→20:10)
[2019-10-22] MEDS: PONATINIB HCL PO SCH (07:23)
[2019-10-22] MEDS: Voriconazole 50 MG TAB PO SCH ×2 (07:23→22:35)
[2019-10-22] MEDS: levETIRAcetam 500 mg/5 ml Oral Solution PO SCH ×2 (10:30→20:09)
[2019-10-22] MEDS: Latanoprost 0.005% Ophth Soln 2.5 ml Bottle EA EYE SCH (20:09)
[2019-10-22] MEDS: Artificial Tear Sol 15 ML BOT L EYE SCH (20:09)
[2019-10-22] MEDS: Rosuvastatin 10 MG TAB PO SCH (20:10)
[2019-10-22] MEDS: Sulfameth/Trimethoprim DS 800-160mg TAB PO SCH (20:11)
[2019-10-23] MEDS: valACYclovir 500 MG TAB PO SCH (08:46)
[2019-10-23] MEDS: Sulfameth/Trimethoprim DS 800-160mg TAB PO SCH ×3 (08:46→20:32)
[2019-10-23] MEDS: levETIRAcetam 500 mg/5 ml Oral Solution PO SCH ×2 (08:46→20:30)
[2019-10-23] MEDS: Voriconazole 50 MG TAB PO SCH ×2 (08:47→20:32)
[2019-10-23] MEDS: PONATINIB HCL PO SCH (08:47)
[2019-10-23] MEDS: Mupirocin 2% Ointment 22 GM Tube TOP SCH ×2 (08:48→20:31)
[2019-10-23] MEDS: oxyCODONE 5 MG TAB PO PRN (11:19)
--- NOTE | 2019-10-23 13:40 | PRG ---
DATE OF SERVICE: 10/23/2019 SUBJECTIVE: Mr. Gao is back from his visit to [facility]. Apparently, his wound culture from the scalp wound grew a couple of bacteria, for which they wanted to start him on Bactrim. One of the bacteria was Stenotrophomonas, and the other one was coag-negative Staph. He has been started on Bactrim DS 2 tablets t.i.d., which comes to 10 mg/kg of trimethoprim every 8 hours. Since he is on such a high dose, I am going to start him on some Florastor. He apparently has a followup visit next week for a possible lumbar puncture. OBJECTIVE: VITAL SIGNS: The patient is afebrile. Heart rate 72, respirations 16, oxygen saturation 95% on room air, blood pressure 103/58. CARDIOVASCULAR: S1 and S2 plus. RESPIRATORY: Normal vesicular breath sounds. ABDOMEN: Soft and nontender. Bowel sounds heard in all quadrants. EXTREMITIES: Without cyanosis or clubbing. CENTRAL NERVOUS SYSTEM: Improving deconditioning. IMPRESSION: 1. Acute lymphoblastic leukemia. 2. Paraneoplastic syndrome. 3. History of deep venous thrombosis and pulmonary embolism. 4. Possible scalp wound infection. 5. Improving deconditioning. 6. Pancytopenia. 7. Hypertension. 8. Dyslipidemia. PLAN: 1. Continue current medications. 2. Add Florastor 250 b.i.d. for 1 week. 3. Heart-healthy diet. 4. DVT prophylaxis with PlexiPulses. 5. Decubitus precautions. 6. Stress ulcer prophylaxis. 7. Physical therapy. 8. Routine laboratory values. Job ID: [id number]
[2019-10-23] MEDS: Artificial Tear Sol 15 ML BOT L EYE SCH (20:29)
[2019-10-23] MEDS: Latanoprost 0.005% Ophth Soln 2.5 ml Bottle EA EYE SCH (20:29)
[2019-10-23] MEDS: Rosuvastatin 10 MG TAB PO SCH (20:32)
[2019-10-23] MEDS: Saccharomyces boulardii 250 MG CAP PO SCH (20:32)
[2019-10-24] MEDS: Saccharomyces boulardii 250 MG CAP PO SCH ×2 (08:59→19:52)
[2019-10-24] MEDS: levETIRAcetam 500 mg/5 ml Oral Solution PO SCH ×2 (08:59→19:51)
[2019-10-24] MEDS: Sulfameth/Trimethoprim DS 800-160mg TAB PO SCH ×3 (09:02→19:52)
[2019-10-24] MEDS: PONATINIB HCL PO SCH (09:02)
[2019-10-24] MEDS: valACYclovir 500 MG TAB PO SCH (09:03)
[2019-10-24] MEDS: Voriconazole 50 MG TAB PO SCH ×2 (09:04→19:53)
[2019-10-24] MEDS: Mupirocin 2% Ointment 22 GM Tube TOP SCH ×2 (09:07→19:52)
--- NOTE | 2019-10-24 13:16 | PRG ---
DATE OF SERVICE: 10/24/2019 SUBJECTIVE: Mr. Gao is resting in bed and denies any complaints. He apparently walked 230 feet and has been going to the gym and working out. I advised nursing to have therapy after the case conference let the patient know how he is progressing and when they may expect him to be discharged. His left knee pain is much improved. He is tolerating his Bactrim. OBJECTIVE: VITAL SIGNS: He is afebrile. Heart rate 70, respirations 20, oxygen saturation 96% on room air, blood pressure 114/59. CARDIOVASCULAR: S1 and S2 plus. RESPIRATORY: Normal vesicular breath sounds. ABDOMEN: Soft and nontender. Bowel sounds heard in all quadrants. EXTREMITIES: Without cyanosis or clubbing. IMPRESSION: 1. Acute lymphocytic leukemia. 2. Paraneoplastic syndrome. 3. Hypertension. 4. Dyslipidemia. 5. Pancytopenia. 6. Improving deconditioning. PLAN: 1. Continue current medications. 2. Nutritional support with heart-healthy diet. 3. DVT prophylaxis with PlexiPulses. 4. Decubitus precautions. 5. Stress ulcer prophylaxis. 6. Physical therapy. 7. Continue Bactrim for a total of 7 days. 8. Outpatient followup with [facility]. 9. We will have Therapy inform the patient as to estimated discharge day. I expect it to be sometime next week. Job ID: [id number]
[2019-10-24] MEDS: Latanoprost 0.005% Ophth Soln 2.5 ml Bottle EA EYE SCH (19:50)
[2019-10-24] MEDS: Artificial Tear Sol 15 ML BOT L EYE SCH (19:50)
[2019-10-24] MEDS: Rosuvastatin 10 MG TAB PO SCH (19:52)
[2019-10-25] MEDS: levETIRAcetam 500 mg/5 ml Oral Solution PO SCH ×2 (09:32→21:28)
[2019-10-25] MEDS: Mupirocin 2% Ointment 22 GM Tube TOP SCH ×2 (09:33→21:28)
[2019-10-25] MEDS: Saccharomyces boulardii 250 MG CAP PO SCH ×2 (09:33→21:26)
[2019-10-25] MEDS: Sulfameth/Trimethoprim DS 800-160mg TAB PO SCH ×3 (09:35→21:27)
[2019-10-25] MEDS: Voriconazole 50 MG TAB PO SCH ×2 (09:36→21:29)
[2019-10-25] MEDS: PONATINIB HCL PO SCH (09:36)
[2019-10-25] MEDS: valACYclovir 500 MG TAB PO SCH (09:36)
--- NOTE | 2019-10-25 13:05 | PRG ---
DATE OF SERVICE: 10/25/2019 SUBJECTIVE: Mr. Gao is resting in bed. Denies any complaints. Discussed with therapy and they stated that the patient is doing better, but still have balance issues and would prefer that they continue to work with him for at least another week to see if he improves. Checked his home status and he apparently does live with his son and [id number] and grandkids, so he does have help at home. OBJECTIVE: VITAL SIGNS: He is afebrile, heart rate 63, respirations 18, oxygen saturation 96% on room air, blood pressure 116/62. CARDIOVASCULAR: S1, S2 plus. RESPIRATORY: Normal vesicular breath sounds. ABDOMEN: Soft, nontender. Bowel sounds heard in all quadrants. EXTREMITIES: Without cyanosis or clubbing. CENTRAL NERVOUS SYSTEM: Improving deconditioning. IMPRESSION: 1. Acute lymphocytic leukemia. 2. Paraneoplastic syndrome. 3. Pancytopenia. 4. Possible bacterial infection to his scalp wound. 5. 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 6. Hypertension. 7. Dyslipidemia. 8. Deconditioning. PLAN: 1. Continue current medications. 2. Heart healthy diet. 3. Nutritional support. 4. DVT prophylaxis with PlexiPulses. 5. Decubitus precautions. 6. Stress ulcer prophylaxis. 7. Continue Bactrim. 8. Has appointment with [facility] on Tuesday for followup and pass given. Job ID: [id number]
[2019-10-25] MEDS: oxyCODONE 5 MG TAB PO PRN (14:17)
[2019-10-25] MEDS: Latanoprost 0.005% Ophth Soln 2.5 ml Bottle EA EYE SCH (21:25)
[2019-10-25] MEDS: Artificial Tear Sol 15 ML BOT L EYE SCH (21:25)
[2019-10-25] MEDS: Rosuvastatin 10 MG TAB PO SCH (21:26)
[2019-10-26] MEDS: levETIRAcetam 500 mg/5 ml Oral Solution PO SCH ×2 (08:26→21:09)
[2019-10-26] MEDS: valACYclovir 500 MG TAB PO SCH (08:27)
[2019-10-26] MEDS: Saccharomyces boulardii 250 MG CAP PO SCH ×2 (08:27→21:09)
[2019-10-26] MEDS: Sulfameth/Trimethoprim DS 800-160mg TAB PO SCH ×3 (08:27→21:07)
[2019-10-26] MEDS: Mupirocin 2% Ointment 22 GM Tube TOP SCH ×2 (08:28→21:13)
[2019-10-26] MEDS: PONATINIB HCL PO SCH (08:29)
[2019-10-26] MEDS: Voriconazole 50 MG TAB PO SCH ×2 (08:30→21:09)
--- NOTE | 2019-10-26 08:57 | PRG ---
DATE OF SERVICE: 10/26/2019 SUBJECTIVE: Mr. Gao is up on the side of his bed. He states that his left knee is continuing to improve. He feels like he is getting stronger with therapy. He denies any concerns or questions, discussed with nursing. He has followup appointment with [facility] on Tuesday. OBJECTIVE: VITAL SIGNS: He is afebrile, heart rate 62, respirations 18, oxygen saturation 94% on room air, and blood pressure 107/59. CARDIOVASCULAR SYSTEM: S1 and S2 plus. RESPIRATORY SYSTEM: Normal vesicular breath sounds. ABDOMEN: Soft and nontender. Bowel sounds heard in all quadrants. EXTREMITIES: Without cyanosis or clubbing. Scalp wound with dressing. CENTRAL NERVOUS SYSTEM: Grossly nonfocal. IMPRESSION: 1. Acute lymphocytic leukemia. 2. Paraneoplastic syndrome. 3. Pancytopenia. 4. Hypertension. 5. Dyslipidemia. 6. Scalp wound with infection, on Bactrim. 7. Improving deconditioning. PLAN: 1. Continue current medications. 2. Heart healthy diet. 3. DVT prophylaxis with PlexiPulses. 4. Decubitus precautions. 5. Stress ulcer prophylaxis. 6. Bactrim for a total of 7 days. 7. Physical therapy. 8. Follow up with [facility] on Tuesday. 9. Dr. Steele is on-call this weekend. Job ID: [id number]
[2019-10-26] MEDS: oxyCODONE 5 MG TAB PO PRN (21:07)
[2019-10-26] MEDS: Latanoprost 0.005% Ophth Soln 2.5 ml Bottle EA EYE SCH (21:12)
[2019-10-26] MEDS: Artificial Tear Sol 15 ML BOT L EYE SCH (21:12)
[2019-10-26] MEDS: Rosuvastatin 10 MG TAB PO SCH (21:13)
[2019-10-27] MEDS: levETIRAcetam 500 mg/5 ml Oral Solution PO SCH ×2 (09:14→20:14)
[2019-10-27] MEDS: Sulfameth/Trimethoprim DS 800-160mg TAB PO SCH ×3 (09:17→20:13)
[2019-10-27] MEDS: Saccharomyces boulardii 250 MG CAP PO SCH ×2 (09:18→20:12)
[2019-10-27] MEDS: Voriconazole 50 MG TAB PO SCH ×2 (09:18→20:12)
[2019-10-27] MEDS: valACYclovir 500 MG TAB PO SCH (09:19)
[2019-10-27] MEDS: PONATINIB HCL PO SCH (09:20)
[2019-10-27] MEDS: Mupirocin 2% Ointment 22 GM Tube TOP SCH ×2 (09:21→20:09)
[2019-10-27] MEDS ORDERED: Docusate 100 MG CAP PO SCH (14:00)
[2019-10-27] MEDS: Artificial Tear Sol 15 ML BOT L EYE SCH (20:10)
[2019-10-27] MEDS: Latanoprost 0.005% Ophth Soln 2.5 ml Bottle EA EYE SCH (20:10)
[2019-10-27] MEDS: Rosuvastatin 10 MG TAB PO SCH (20:10)
--- NOTE | 2019-10-27 22:39 | PRG ---
DATE OF SERVICE: SUBJECTIVE: Patient feels well, lying in the bed, resting, no complaints. He is going to [facility] for followup on Tuesday. Feels he is getting stronger daily. OBJECTIVE: VITAL SIGNS: Show temperature 96.8, pulse 66, respiratory rate 20, O2 sat 97% on room air, and blood pressure 119/62. ASSESSMENT: 1. Improving deconditioning, stable. 2. Chronic lymphocytic leukemia. 3. Resolved influenza. 4. Stable paraneoplastic syndrome. 5. Stable pancytopenia. 6. Resolving scalp wound infection. PLAN: 1. Continue PT/OT. 2. Follow up with [facility]. Job ID: [id number]
[2019-10-28] MEDS: levETIRAcetam 500 mg/5 ml Oral Solution PO SCH ×2 (08:51→20:36)
[2019-10-28] MEDS: valACYclovir 500 MG TAB PO SCH (08:52)
[2019-10-28] MEDS: PONATINIB HCL PO SCH (08:52)
[2019-10-28] MEDS: Saccharomyces boulardii 250 MG CAP PO SCH ×2 (08:52→20:37)
[2019-10-28] MEDS: Voriconazole 50 MG TAB PO SCH ×2 (08:53→20:39)
[2019-10-28] MEDS: Mupirocin 2% Ointment 22 GM Tube TOP SCH ×2 (08:53→20:34)
[2019-10-28] MEDS: Docusate 100 MG CAP PO SCH (08:53)
[2019-10-28] MEDS: Sulfameth/Trimethoprim DS 800-160mg TAB PO SCH ×3 (09:47→20:37)
[2019-10-28] MEDS: Latanoprost 0.005% Ophth Soln 2.5 ml Bottle EA EYE SCH (20:35)
[2019-10-28] MEDS: Artificial Tear Sol 15 ML BOT L EYE SCH (20:36)
[2019-10-28] MEDS: Rosuvastatin 10 MG TAB PO SCH (20:37)
--- NOTE | 2019-10-28 20:49 | PRG ---
DATE OF SERVICE: 10/28/2019 SUBJECTIVE: The patient feels well, rested through the weekend, increased strength. No cough, shortness of breath, walking with a walker and apparently he is going to [facility] tomorrow for MRI and evaluation of possible future surgery. OBJECTIVE: VITAL SIGNS: Show blood pressure 111/58, temperature 97, pulse 63, respirations 18, and O2 sats 97% on room air. LUNGS: Clear. CARDIAC: Showed regular rhythm. ABDOMEN: Soft and nontender. Scalp wound is healing well. ASSESSMENT: 1. Improving deconditioning. 2. Chronic lymphocytic leukemia. 3. Stable pancytopenia. 4. Resolving scalp wound infection. PLAN: Follow up with [facility] tomorrow. Continue PT/OT. Dr. Braswell will be back tonight. Job ID: [id number]
[2019-10-29] MEDS: levETIRAcetam 500 mg/5 ml Oral Solution PO SCH ×2 (08:25→21:57)
[2019-10-29] MEDS: Docusate 100 MG CAP PO SCH (08:25)
[2019-10-29] MEDS: Mupirocin 2% Ointment 22 GM Tube TOP SCH ×2 (08:27→21:58)
[2019-10-29] MEDS: PONATINIB HCL PO SCH (08:28)
[2019-10-29] MEDS: Sulfameth/Trimethoprim DS 800-160mg TAB PO SCH ×2 (08:29→14:33)
[2019-10-29] MEDS: Saccharomyces boulardii 250 MG CAP PO SCH ×2 (08:30→21:55)
[2019-10-29] MEDS: Voriconazole 50 MG TAB PO SCH ×2 (08:31→21:56)
[2019-10-29] MEDS: valACYclovir 500 MG TAB PO SCH (08:31)
[2019-10-29] MEDS: Rosuvastatin 10 MG TAB PO SCH (21:55)
[2019-10-29] MEDS: Latanoprost 0.005% Ophth Soln 2.5 ml Bottle EA EYE SCH (21:59)
[2019-10-29] MEDS: Artificial Tear Sol 15 ML BOT L EYE SCH (21:59)
[2019-10-30] MEDS: levETIRAcetam 500 mg/5 ml Oral Solution PO SCH ×2 (08:49→20:12)
[2019-10-30] MEDS: Docusate 100 MG CAP PO SCH (08:49)
[2019-10-30] MEDS: PONATINIB HCL PO SCH (08:50)
[2019-10-30] MEDS: Mupirocin 2% Ointment 22 GM Tube TOP SCH ×2 (08:50→20:10)
[2019-10-30] MEDS: Saccharomyces boulardii 250 MG CAP PO SCH ×2 (08:51→20:13)
[2019-10-30] MEDS: valACYclovir 500 MG TAB PO SCH (08:51)
[2019-10-30] MEDS: Voriconazole 50 MG TAB PO SCH ×2 (08:51→20:14)
[2019-10-30] MEDS: oxyCODONE 5 MG TAB PO PRN (13:31)
--- NOTE | 2019-10-30 14:18 | PRG ---
DATE OF SERVICE: 10/30/2019 SUBJECTIVE: Mr. Gao visited his doctors at [facility]. Initially, he apparently had a lumbar puncture as well as MRI of his head. He is tentatively scheduled for surgery for his cancer excision from his right sabianism on the . He apparently has a followup appointment with the preop team next Tuesday. His antibiotic has been changed from Bactrim to Levaquin. OBJECTIVE: VITAL SIGNS: He is afebrile, heart rate 68, respirations 18, oxygen saturation 98% on room air, and blood pressure 117/65. CARDIOVASCULAR: S1 and S2 plus. RESPIRATORY: Normal vesicular breath sounds heard. ABDOMEN: Soft and nontender. Bowel sounds heard in all quadrants. EXTREMITIES: Without cyanosis or clubbing. CENTRAL NERVOUS SYSTEM: Improving deconditioning. IMPRESSION: 1. Acute lymphocytic leukemia. 2. Paraneoplastic syndrome. 3. Pancytopenia. 4. Possible squamous cell cancer to his right sabianism. 5. Healing scalp wound. 6. Improving deconditioning. 7. Hypertension. 8. Dyslipidemia. PLAN: 1. Continue current medications. 2. Heart healthy diet. 3. DVT prophylaxis with PlexiPulses. 4. Decubitus precautions. 5. Stress ulcer prophylaxis. 6. Physical therapy. 7. Continue current medications. 8. Routine laboratory values. 9. Discussed with the patient in detail. 10. No family at bedside. Job ID: [id number]
[2019-10-30] MEDS: Latanoprost 0.005% Ophth Soln 2.5 ml Bottle EA EYE SCH (20:11)
[2019-10-30] MEDS: Artificial Tear Sol 15 ML BOT L EYE SCH (20:12)
[2019-10-30] MEDS: Rosuvastatin 10 MG TAB PO SCH (20:13)
[2019-10-31] MEDS: oxyCODONE 5 MG TAB PO PRN ×2 (01:34→17:16)
[2019-10-31] MEDS: Docusate 100 MG CAP PO SCH (08:33)
[2019-10-31] MEDS: Voriconazole 50 MG TAB PO SCH ×2 (08:33→20:20)
[2019-10-31] MEDS: levETIRAcetam 500 mg/5 ml Oral Solution PO SCH ×2 (08:34→20:19)
[2019-10-31] MEDS: valACYclovir 500 MG TAB PO SCH (08:34)
[2019-10-31] MEDS: Mupirocin 2% Ointment 22 GM Tube TOP SCH ×2 (08:35→20:20)
[2019-10-31] MEDS: PONATINIB HCL PO SCH (08:37)
--- NOTE | 2019-10-31 13:07 | PRG ---
DATE OF SERVICE: 10/31/2019 SUBJECTIVE: Mr. Gao states he felt really weak this morning. He is feeling better today. He denies any fever or chills. He denies any cough. He denies any myalgia. He denies any lightheadedness or dizziness. He states that this happens to him periodically and usually at [facility]. They either give him IVIG or IV steroids. I advised him that I am not comfortable doing either since I really do not know what is going on, but I will get some stat lab work to make sure it is not any electrolyte issue or drop in his hemoglobin. Clinically, he is not showing any other signs for infection other than just feeling weak. OBJECTIVE: VITAL SIGNS: Stable. No fever. His temperature is 98.2, pulse 77, respirations 20, oxygen saturation 97% on room air, blood pressure 121/64, he did have a T-max of 100 last night at about 10 o'clock. CARDIOVASCULAR SYSTEM: S1 and S2 plus. RESPIRATORY SYSTEM: Normal vesicular breath sounds. ABDOMEN: Soft, nontender. Bowel sounds heard in all quadrants. EXTREMITIES: Without cyanosis or clubbing. IMPRESSION: 1. Acute lymphocytic leukemia. 2. Pancytopenia. 3. Paraneoplastic syndrome. 4. Hypertension. 5. Dyslipidemia. 6. Low grade fever yesterday with not feeling well today. We will do an infection workup. PLAN: 1. Blood cultures x2, urine culture, CBC, CMP, chest x-ray, and flu swab now. 2. Continue current medications. 3. Nutritional support. 4. DVT prophylaxis with PlexiPulses. 5. Decubitus precautions. 6. Stress ulcer prophylaxis. 7. Therapy. Job ID: [id number]
--- NOTE | 2019-10-31 13:45 | RAD ---
PORTABLE CHEST 1 VIEW: DATE: 10/31/2019. TIME: 1:00 PM. HISTORY: Fever, fatigue, acute lymphoblastic leukemia. COMPARISON: 10/11/2019. FINDINGS/IMPRESSION: The heart size is stable. The aorta is tortuous. There is a calcified granuloma in the left mid darin g. No lobar consolidation, pneumothoraces, hebert pulmonary edema, or large effusions are seen. The patient is rotated to the right. POS: [facility]
[2019-10-31 14:51] LABS: Hemoglobin 10.6 g/dL (14.0-18.0); Mean Corpuscular HGB CONC 32.4 g/dL (32.0-36.0); Mean Corpuscular Hemoglobin 27.1 pg (27.0-31.0); Mean Corpuscular Volume 83.8 fL (78.0-98.0); Mean Platelet Volume 7.6 fL (7.4-10.4); Platelet Count 104 thou/uL (130-400); RBC Distribution Width 17.2 % (11.5-14.5); Red Blood Cell (RBC) Count 3.91 mill/uL (4.70-6.10); White Blood Cell (WBC) Count 4.7 thou/uL (4.8-10.8)
[2019-10-31 14:57] LABS: ALT (SGPT) 10 U/L (8-55); AST (SGOT) 13 U/L (5-34); Albumin 3.7 g/dL (3.4-4.8); Alkaline Phosphatase 126 U/L (40-110); Anion Gap 16 mmol/L (10-20); BUN (Urea Nitrogen) 16 mg/dL (8.4-25.7); Bilirubin, Total 0.4 mg/dL (0.2-1.2); Calc. Creatinine Clearance 78 mL/min (70-130); Calcium 8.4 mg/dL (7.8-10.44); Carbon Dioxide 20 mmol/L (23-31); Chloride 100 mmol/L (98-107); Estimated GFR-MDRD 60; Globulin 2.2 g/dL (2.4-3.5); Glucose 117 mg/dL (83-110); Protein, Total 5.9 g/dL (5.8-8.1); Sodium 131 mmol/L (136-145)
[2019-10-31 15:28] LABS: Anisocytosis SLIGHT = 6-15 cells (100X) (0-5/hpf); Lymphocytes 8 % (21-51); MDiff Complete? YES; Monocytes 1 % (0-10); Neutrophil 91 % (42-75); Ovalocytes SLIGHT = 2-5 cells (100X) (0-1/hpf); Platelet Morphology Comment Appears Decreased
[2019-10-31] MEDS: Artificial Tear Sol 15 ML BOT L EYE SCH (20:17)
[2019-10-31] MEDS: Latanoprost 0.005% Ophth Soln 2.5 ml Bottle EA EYE SCH (20:18)
[2019-10-31] MEDS: Rosuvastatin 10 MG TAB PO SCH (20:20)
[2019-11-01] MEDS: oxyCODONE 5 MG TAB PO PRN ×2 (01:23→18:21)
[2019-11-01] MEDS ORDERED: Bisacodyl 10 MG SUPP PR PRN (06:45)
[2019-11-01] MEDS: Voriconazole 50 MG TAB PO SCH ×2 (09:31→21:21)
[2019-11-01] MEDS: levETIRAcetam 500 mg/5 ml Oral Solution PO SCH ×2 (09:31→21:22)
[2019-11-01] MEDS: valACYclovir 500 MG TAB PO SCH (09:31)
[2019-11-01] MEDS: Polyethylene Glycol 3350 17 GM Packet PO SCH (09:31)
[2019-11-01] MEDS: Docusate 100 MG CAP PO SCH (09:32)
[2019-11-01] MEDS: Mupirocin 2% Ointment 22 GM Tube TOP SCH ×2 (09:33→21:20)
[2019-11-01] MEDS: PONATINIB HCL PO SCH (09:35)
--- NOTE | 2019-11-01 13:33 | PRG ---
DATE OF SERVICE: 11/01/2019 SUBJECTIVE: Mr. Gao states that he feels better. This morning, he apparently participated with therapy. Denies any chest pain or shortness of breath. Denies any lightheadedness or dizziness. He did complain of constipation and Colace is not helping, so I have added MiraLAX daily and Dulcolax suppository b.i.d. p.r.n. OBJECTIVE: VITAL SIGNS: Today, he is afebrile, temperature 96.3, heart rate 78, respirations 18, oxygen saturation 100% on room air, and blood pressure 116/64. CARDIOVASCULAR SYSTEM: S1 and S2 plus. RESPIRATORY SYSTEM: Normal vesicular breath sounds. ABDOMEN: Soft and nontender. Bowel sounds heard in all quadrants. EXTREMITIES: Without cyanosis or clubbing. CENTRAL NERVOUS SYSTEM: Grossly nonfocal. LABORATORY DATA: Laboratory values done stat yesterday because he was feeling weak and he had a temperature T-max of 100 degrees the night before. White count is actually 4.7, H and H are 10.6 and 32.7, all numbers are improved. His chemistry showed a low sodium of 131, potassium 5, BUN and creatinine of 16 and 1.2. Influenza screen was negative. DIAGNOSTIC DATA: Chest x-ray did not show any acute changes, and blood cultures and urine cultures are pending. IMPRESSION: 1. Acute lymphocytic leukemia. 2. Paraneoplastic syndrome. 3. Hypertension. 4. Dyslipidemia. 5. Low-grade fever. 6. Squamous cell carcinoma to his scalp. PLAN: 1. Await urine culture and blood culture. 2. Monitor vital signs. 3. Continue physical therapy. 4. Nutritional support. 5. DVT and stress ulcer prophylaxis. 6. Continue current medication. 7. Bowel regimen. 8. Discussed with the patient and nursing in detail. All questions answered. Job ID: [id number]
[2019-11-01] MEDS ORDERED: Fleet Enema 133 ML BOT PR SCH (17:45)
[2019-11-01] MEDS: Artificial Tear Sol 15 ML BOT L EYE SCH (21:17)
[2019-11-01] MEDS: Latanoprost 0.005% Ophth Soln 2.5 ml Bottle EA EYE SCH (21:17)
[2019-11-01] MEDS: Rosuvastatin 10 MG TAB PO SCH (21:19)
[2019-11-02] MEDS: oxyCODONE 5 MG TAB PO PRN ×2 (02:15→20:09)
[2019-11-02] MEDS: PONATINIB HCL PO SCH (08:38)
[2019-11-02] MEDS: Mupirocin 2% Ointment 22 GM Tube TOP SCH ×2 (08:39→20:08)
[2019-11-02] MEDS: Polyethylene Glycol 3350 17 GM Packet PO SCH (08:39)
[2019-11-02] MEDS: levETIRAcetam 500 mg/5 ml Oral Solution PO SCH ×2 (08:40→20:07)
[2019-11-02] MEDS: Docusate 100 MG CAP PO SCH (08:41)
[2019-11-02] MEDS: Voriconazole 50 MG TAB PO SCH ×2 (08:42→20:09)
[2019-11-02] MEDS: valACYclovir 500 MG TAB PO SCH (08:43)
--- NOTE | 2019-11-02 09:45 | PRG ---
DATE OF SERVICE: 11/02/2019 SUBJECTIVE: Mr. Gao is feeling much better this morning. He apparently had a couple of good bowel movements last night. He did require an enema. He is being compliant with his MiraLAX. He denies any questions or concerns. No fever or chills. OBJECTIVE: VITAL SIGNS: He is afebrile, heart rate 77, respirations 18, oxygen saturation 100% on room air, and blood pressure 112/58. CARDIOVASCULAR SYSTEM: S1 and S2 plus. RESPIRATORY SYSTEM: Normal vesicular breath sounds. ABDOMEN: Soft and nontender. Bowel sounds heard in all quadrants. EXTREMITIES: Without cyanosis or clubbing. CENTRAL NERVOUS SYSTEM: Improving deconditioning. IMPRESSION: 1. Acute lymphocytic leukemia. 2. Resolved constipation. 3. Paraneoplastic syndrome. 4. Hypertension. 5. Dyslipidemia. 6. Scalp wound with infection. 7. Possible squamous cell carcinoma of the scalp. PLAN: 1. Continue current medications. 2. Nutritional support. 3. Bowel regimen. 4. DVT prophylaxis with PlexiPulses. 5. Decubitus precautions. 6. Stress ulcer prophylaxis. 7. Wound care. 8. Continue therapy. 9. Routine laboratory values. 10. Discussed with the patient and nursing in detail. No family at bedside. Job ID: [id number]
[2019-11-02] MEDS: Artificial Tear Sol 15 ML BOT L EYE SCH (20:06)
[2019-11-02] MEDS: Latanoprost 0.005% Ophth Soln 2.5 ml Bottle EA EYE SCH (20:06)
[2019-11-02] MEDS: Rosuvastatin 10 MG TAB PO SCH (20:08)
[2019-11-03] MEDS: Docusate 100 MG CAP PO SCH (09:28)
[2019-11-03] MEDS: Polyethylene Glycol 3350 17 GM Packet PO SCH (09:29)
[2019-11-03] MEDS: Voriconazole 50 MG TAB PO SCH ×2 (09:31→20:49)
[2019-11-03] MEDS: valACYclovir 500 MG TAB PO SCH (09:31)
[2019-11-03] MEDS: PONATINIB HCL PO SCH (09:32)
[2019-11-03] MEDS: levETIRAcetam 500 mg/5 ml Oral Solution PO SCH ×2 (09:33→20:46)
[2019-11-03] MEDS: Mupirocin 2% Ointment 22 GM Tube TOP SCH ×2 (09:35→20:47)
--- NOTE | 2019-11-03 17:11 | PRG ---
DATE OF SERVICE: 11/03/2019 SUBJECTIVE: Mr. Gao is doing well. Denies any complaints. Resting comfortably. Tolerating his medications. He has a followup appointment with [facility] on Tuesday. No further fevers. OBJECTIVE: VITAL SIGNS: He is afebrile. Heart rate 78, respirations 20, oxygen saturation 100% on room air, and blood pressure 126/68. CARDIOVASCULAR SYSTEM: S1 and S2 plus. RESPIRATORY SYSTEM: Normal vesicular breath sounds heard. ABDOMEN: Soft and nontender. Bowel sounds heard in all quadrants. EXTREMITIES: Without cyanosis or clubbing. CENTRAL NERVOUS SYSTEM: Grossly nonfocal. IMPRESSION: 1. Acute lymphocytic leukemia. 2. Paraneoplastic syndrome. 3. Pancytopenia. 4. Scalp wound with resolving infection. 5. Possible squamous cell carcinoma in the scalp. 6. Improving deconditioning. 7. Hypertension. 8. Dyslipidemia. PLAN: 1. Continue current medications. 2. Heart healthy diet. 3. Continue antibiotics. 4. Physical therapy. 5. DVT prophylaxis with PlexiPulses. 6. Decubitus precaution. 7. Stress ulcer prophylaxis. 8. Okay to go to [facility] on Tuesday. Job ID: [id number]
[2019-11-03] MEDS: Artificial Tear Sol 15 ML BOT L EYE SCH (20:47)
[2019-11-03] MEDS: Latanoprost 0.005% Ophth Soln 2.5 ml Bottle EA EYE SCH (20:47)
[2019-11-03] MEDS: Rosuvastatin 10 MG TAB PO SCH (20:48)
[2019-11-03] MEDS: Hydrocortisone 2.5% Cream 30 GM TUBE TOP SCH (20:50)
[2019-11-04] MEDS: levETIRAcetam 500 mg/5 ml Oral Solution PO SCH ×2 (08:48→21:44)
[2019-11-04] MEDS: Hydrocortisone 2.5% Cream 30 GM TUBE TOP SCH (08:49)
[2019-11-04] MEDS: Docusate 100 MG CAP PO SCH ×2 (08:49→21:47)
[2019-11-04] MEDS: Mupirocin 2% Ointment 22 GM Tube TOP SCH ×2 (08:50→21:44)
[2019-11-04] MEDS: Polyethylene Glycol 3350 17 GM Packet PO SCH (08:51)
[2019-11-04] MEDS: PONATINIB HCL PO SCH (08:51)
[2019-11-04] MEDS: Voriconazole 50 MG TAB PO SCH ×2 (08:52→21:46)
[2019-11-04] MEDS: valACYclovir 500 MG TAB PO SCH (08:52)
--- NOTE | 2019-11-04 16:03 | PRG ---
DATE OF SERVICE: 11/04/2019 SUBJECTIVE: Mr. Gao is doing the same, denies any complaints. He states he is feeling stronger. He is still having some issues with constipation and I advised him that I will increase his Colace to b.i.d. He is already on MiraLAX. He also states that he is not getting the hemorrhoid cream that I ordered yesterday and checking with the nurses. Apparently, the Anusol-HC cream that was put in, they do not have it in stock but they have the suppository, so we are going to start it today. I also advised him that his scalp wound is healed enough that he should be able to leave it open to air after he comes back from [facility] tomorrow. OBJECTIVE: VITAL SIGNS: He is afebrile. Heart rate 68, respirations 16, oxygen saturation 99% on room air, blood pressure 113/61. CARDIOVASCULAR: S1-S2 plus. RESPIRATORY: Normal vesicular breath sounds. ABDOMEN: Soft and nontender. Bowel sounds heard in all quadrants. EXTREMITIES: Without cyanosis or clubbing. CENTRAL NERVOUS SYSTEM: Improving deconditioning. IMPRESSION: 1. Acute lymphocytic leukemia. 2. Paraneoplastic syndrome. 3. Improving pancytopenia. 4. Hyponatremia. 5. Hypertension. 6. Dyslipidemia. 7. Constipation. 8. Possible hemorrhoids. PLAN: 1. Continue current medications. 2. Heart healthy diet. 3. Increase Colace to b.i.d. 4. Continue MiraLAX. 5. Change Anusol-HC cream to suppository as they apparently have it in stock. 6. Recheck sodium levels tomorrow. 7. Physical therapy. 8. Routine laboratory values. Job ID: [id number]
[2019-11-04] MEDS: Artificial Tear Sol 15 ML BOT L EYE SCH (21:44)
[2019-11-04] MEDS: Latanoprost 0.005% Ophth Soln 2.5 ml Bottle EA EYE SCH (21:44)
[2019-11-04] MEDS: Rosuvastatin 10 MG TAB PO SCH (21:46)
[2019-11-04] MEDS: Hydrocortisone Acetate 25 MG Suppository PR SCH (21:58)
[2019-11-04] MEDS: oxyCODONE 5 MG TAB PO PRN (22:04)
[2019-11-05 06:01] LABS: Anion Gap 14 mmol/L (10-20); BUN (Urea Nitrogen) 14 mg/dL (8.4-25.7); Calc. Creatinine Clearance 118 mL/min (70-130); Calcium 8.2 mg/dL (7.8-10.44); Carbon Dioxide 22 mmol/L (23-31); Chloride 108 mmol/L (98-107); Estimated GFR-MDRD Greater than 90; Glucose 105 mg/dL (83-110); Potassium 4.2 mmol/L (3.5-5.1); Sodium 140 mmol/L (136-145)
[2019-11-05 06:08] LABS: Hemoglobin 9.6 g/dL (14.0-18.0); Mean Corpuscular HGB CONC 32.8 g/dL (32.0-36.0); Mean Corpuscular Hemoglobin 27.1 pg (27.0-31.0); Mean Corpuscular Volume 82.5 fL (78.0-98.0); Platelet Count 68 thou/uL (130-400); RBC Distribution Width 16.9 % (11.5-14.5); Red Blood Cell (RBC) Count 3.53 mill/uL (4.70-6.10); White Blood Cell (WBC) Count 4.6 thou/uL (4.8-10.8)
[2019-11-05 06:09] LABS: Anisocytosis SLIGHT = 6-15 cells (100X) (0-5/hpf); Hypochromia SLIGHT = 6-15 cells (100X) (0-5/hpf); Lymphocytes 20 % (21-51); MDiff Complete? YES; Monocytes 14 % (0-10); Neutrophil 66 % (42-75); Platelet Morphology Comment Appears Decreased; Spherocytes SLIGHT = 1-5 cells (100X) (None Seen)
[2019-11-05] MEDS: levETIRAcetam 500 mg/5 ml Oral Solution PO SCH ×2 (08:06→20:03)
[2019-11-05] MEDS: Voriconazole 50 MG TAB PO SCH ×2 (08:06→20:05)
[2019-11-05] MEDS: Docusate 100 MG CAP PO SCH ×2 (08:07→20:06)
[2019-11-05] MEDS: valACYclovir 500 MG TAB PO SCH (08:07)
[2019-11-05] MEDS: Hydrocortisone Acetate 25 MG Suppository PR SCH ×2 (08:08→20:07)
[2019-11-05] MEDS: PONATINIB HCL PO SCH (08:08)
[2019-11-05] MEDS: Mupirocin 2% Ointment 22 GM Tube TOP SCH ×2 (08:08→20:03)
[2019-11-05] MEDS: Polyethylene Glycol 3350 17 GM Packet PO SCH (08:09)
[2019-11-05] MEDS: Latanoprost 0.005% Ophth Soln 2.5 ml Bottle EA EYE SCH (20:03)
[2019-11-05] MEDS: oxyCODONE 5 MG TAB PO PRN (20:04)
[2019-11-05] MEDS: Rosuvastatin 10 MG TAB PO SCH (20:06)
[2019-11-05] MEDS: Artificial Tear Sol 15 ML BOT L EYE SCH (20:06)
[2019-11-06] MEDS: Docusate 100 MG CAP PO SCH ×2 (09:18→20:42)
[2019-11-06] MEDS: valACYclovir 500 MG TAB PO SCH (09:19)
[2019-11-06] MEDS: levETIRAcetam 500 mg/5 ml Oral Solution PO SCH ×2 (09:19→20:43)
[2019-11-06] MEDS: PONATINIB HCL PO SCH (09:20)
[2019-11-06] MEDS: Mupirocin 2% Ointment 22 GM Tube TOP SCH ×2 (09:20→20:43)
[2019-11-06] MEDS: Voriconazole 50 MG TAB PO SCH ×2 (09:20→20:44)
[2019-11-06] MEDS: Hydrocortisone Acetate 25 MG Suppository PR SCH ×2 (09:24→20:42)
[2019-11-06] MEDS: Polyethylene Glycol 3350 17 GM Packet PO SCH (09:24)
--- NOTE | 2019-11-06 17:03 | PRG ---
DATE OF SERVICE: 11/06/2019 SUBJECTIVE: Mr. Gao is resting in bed. He denies any concerns or questions. He had a good visit at [facility]. They apparently want him to come next week for IVIG infusion. I spoke with Therapy and Therapy state that the patient has plateauing and he is pretty much ready for discharge in the next couple of days. I made the patient aware and he wanted to work with therapy and be discharged on Tuesday. I also advised him that Therapy recommends that he have somebody there at home 14/03. OBJECTIVE: VITAL SIGNS: He is afebrile, heart rate 84, respirations 20, oxygen saturation 100% on room air, blood pressure 112/60. CARDIOVASCULAR: S1, S2 plus. RESPIRATORY: Normal vesicular breath sounds. ABDOMEN: Soft, nontender. Bowel sounds in all quadrants. EXTREMITIES: Without cyanosis or clubbing. CENTRAL NERVOUS SYSTEM: Grossly nonfocal. IMPRESSION: 1. Acute lymphocytic leukemia. 2. Paraneoplastic syndrome. 3. Hypertension. 4. Dyslipidemia. 5. Deconditioning. 6. Pancytopenia. PLAN: 1. Continue current medications. 2. Wound care to his scalp. 3. Continue therapy. 4. Discharge planning. 5. Heart healthy diet. 6. Routine laboratory values. 7. Discussed the patient in detail. All questions answered. Job ID: [id number]
[2019-11-06] MEDS: Artificial Tear Sol 15 ML BOT L EYE SCH (20:42)
[2019-11-06] MEDS: Latanoprost 0.005% Ophth Soln 2.5 ml Bottle EA EYE SCH (20:43)
[2019-11-06] MEDS: Rosuvastatin 10 MG TAB PO SCH (20:44)
[2019-11-06] MEDS: oxyCODONE 5 MG TAB PO PRN (20:49)
[2019-11-07] MEDS: Docusate 100 MG CAP PO SCH ×2 (08:41→20:12)
[2019-11-07] MEDS: Hydrocortisone Acetate 25 MG Suppository PR SCH ×2 (08:42→20:12)
[2019-11-07] MEDS: levETIRAcetam 500 mg/5 ml Oral Solution PO SCH ×2 (08:42→20:12)
[2019-11-07] MEDS: PONATINIB HCL PO SCH (08:43)
[2019-11-07] MEDS: Mupirocin 2% Ointment 22 GM Tube TOP SCH ×2 (08:43→20:13)
[2019-11-07] MEDS: Voriconazole 50 MG TAB PO SCH ×2 (08:45→20:13)
[2019-11-07] MEDS: Polyethylene Glycol 3350 17 GM Packet PO SCH (08:45)
[2019-11-07] MEDS: valACYclovir 500 MG TAB PO SCH (08:45)
--- NOTE | 2019-11-07 13:27 | PRG ---
DATE OF SERVICE: 11/07/2019 SUBJECTIVE: Mr. Gao is up in his chair. He denies any complaints. He is wondering if he can do private pay to stay here longer than Medicare allows as he is scheduled for surgery to his scalp for a squamous cell carcinoma excision and does not know if he needs to come back for therapy. I advised him to discuss that with Segun from administration and nursing had informed him already. OBJECTIVE: VITAL SIGNS: The patient is afebrile, heart rate 69, respirations 16, oxygen saturation 99% on room air, blood pressure 119/64. CARDIOVASCULAR: S1 and S2 plus. RESPIRATORY: Normal vesicular breath sounds. ABDOMEN: Soft and nontender. Bowel sounds heard in all quadrants. EXTREMITIES: Without cyanosis or clubbing. CENTRAL NERVOUS SYSTEM: Improving deconditioning. IMPRESSION: 1. Acute lymphocytic leukemia. 2. Paraneoplastic syndrome. 3. Pancytopenia, improving. 4. Hypertension. 5. Dyslipidemia. 6. Improving deconditioning. PLAN: 1. Continue current medications. 2. Heart-healthy diet. 3. Nutritional support. 4. Physical therapy. 5. Discharge planning. 6. Discussed with the patient in detail. All questions answered. Job ID: [id number]
[2019-11-07] MEDS: Artificial Tear Sol 15 ML BOT L EYE SCH (20:11)
[2019-11-07] MEDS: Latanoprost 0.005% Ophth Soln 2.5 ml Bottle EA EYE SCH (20:12)
[2019-11-07] MEDS: Rosuvastatin 10 MG TAB PO SCH (20:13)
[2019-11-07] MEDS: oxyCODONE 5 MG TAB PO PRN (20:17)
[2019-11-08] MEDS: Hydrocortisone Acetate 25 MG Suppository PR SCH ×2 (08:24→21:03)
[2019-11-08] MEDS: Docusate 100 MG CAP PO SCH ×2 (08:24→21:02)
[2019-11-08] MEDS: levETIRAcetam 500 mg/5 ml Oral Solution PO SCH ×2 (08:25→21:03)
[2019-11-08] MEDS: Mupirocin 2% Ointment 22 GM Tube TOP SCH (08:25)
[2019-11-08] MEDS: Voriconazole 50 MG TAB PO SCH ×2 (08:27→21:05)
[2019-11-08] MEDS: PONATINIB HCL PO SCH (08:27)
[2019-11-08] MEDS: Polyethylene Glycol 3350 17 GM Packet PO SCH (08:27)
[2019-11-08] MEDS: valACYclovir 500 MG TAB PO SCH (08:27)
--- NOTE | 2019-11-08 14:13 | PRG ---
DATE OF SERVICE: 11/08/2019 SUBJECTIVE: Mr. Gao is doing the same. He is waiting to hear from the hospital to see how much it will be for him to pay out of pocket to stay here. Therapy states that further therapy is really not going to help and they are going to discharge him tomorrow. Apparently, Case Management is working on placing him in a fci if he cannot stay here. OBJECTIVE: VITAL SIGNS: He is afebrile. Heart rate 69, respirations 16, oxygen saturation 97% on room air, blood pressure 118/57. CARDIOVASCULAR: S1 and S2 plus. RESPIRATORY: Normal vesicular breath sounds. ABDOMEN: Soft and nontender. Bowel sounds heard in all quadrants. EXTREMITIES: Without cyanosis or clubbing. CENTRAL NERVOUS SYSTEM: Grossly nonfocal except for deconditioning and balance issues. IMPRESSION: 1. Acute lymphocytic leukemia. 2. Paraneoplastic syndrome. 3. Pancytopenia. 4. Hypertension. 5. Dyslipidemia. 6. Deconditioning. PLAN: 1. Continue current medications. 2. Await decision from hospital regarding whether he can pay out of pocket to stay here. 3. Discharge planning. 4. Heart-healthy diet. 5. Physical therapy. 6. Outpatient followup with [facility]. 7. Discussed with the patient and nursing in detail. All questions answered. Job ID: [id number]
[2019-11-08] MEDS: Artificial Tear Sol 15 ML BOT L EYE SCH (21:03)
[2019-11-08] MEDS: Latanoprost 0.005% Ophth Soln 2.5 ml Bottle EA EYE SCH (21:04)
[2019-11-08] MEDS: Rosuvastatin 10 MG TAB PO SCH (21:05)
[2019-11-09] MEDS: valACYclovir 500 MG TAB PO SCH (08:15)
[2019-11-09] MEDS: Hydrocortisone Acetate 25 MG Suppository PR SCH ×2 (08:15→21:13)
[2019-11-09] MEDS: levETIRAcetam 500 mg/5 ml Oral Solution PO SCH ×2 (08:17→21:10)
[2019-11-09] MEDS: Docusate 100 MG CAP PO SCH ×2 (08:17→21:13)
[2019-11-09] MEDS: Voriconazole 50 MG TAB PO SCH ×2 (08:19→21:12)
[2019-11-09] MEDS: Polyethylene Glycol 3350 17 GM Packet PO SCH (08:20)
[2019-11-09] MEDS: PONATINIB HCL PO SCH (08:23)
--- NOTE | 2019-11-09 10:40 | PRG ---
DATE OF SERVICE: SUBJECTIVE: Mr. Gao is doing the same. Denies any complaints. He is waiting to see if he can private pay and stay here until his surgery next week. Therapy has stated that he has plateaued and they are going to discharge him today. Administration is working with him on the cost. OBJECTIVE: VITAL SIGNS: He is afebrile. Heart rate 78, respirations 18, oxygen saturation 96% on room air, blood pressure 116/68. CARDIOVASCULAR: S1 and S2 plus. RESPIRATORY: Normal vesicular breath sounds. ABDOMEN: Soft, nontender. Bowel sounds heard in all quadrants. EXTREMITIES: Without cyanosis or clubbing. IMPRESSION: 1. Acute lymphocytic leukemia. 2. Paraneoplastic syndrome. 3. Pancytopenia. 4. Hypertension. 5. Dyslipidemia. 6. Possible squamous cell cancer of the scalp and deconditioning. PLAN: 1. Continue current medications. 2. Nutritional support. 3. Outpatient followup with the [facility]. 4. Discharge planning. 5. Wound care. 6. Discussed with the patient and nursing. All questions answered. Dr. Steele is on-call this weekend. Job ID: [id number]
[2019-11-09] MEDS: Artificial Tear Sol 15 ML BOT L EYE SCH (21:10)
[2019-11-09] MEDS: Latanoprost 0.005% Ophth Soln 2.5 ml Bottle EA EYE SCH (21:11)
[2019-11-09] MEDS: Rosuvastatin 10 MG TAB PO SCH (21:12)
[2019-11-10] MEDS: Hydrocortisone Acetate 25 MG Suppository PR SCH ×2 (09:16→20:10)
[2019-11-10] MEDS: Polyethylene Glycol 3350 17 GM Packet PO SCH (09:16)
[2019-11-10] MEDS: levETIRAcetam 500 mg/5 ml Oral Solution PO SCH ×2 (09:18→20:08)
[2019-11-10] MEDS: Voriconazole 50 MG TAB PO SCH ×2 (09:18→20:09)
[2019-11-10] MEDS: Docusate 100 MG CAP PO SCH ×2 (09:19→20:08)
[2019-11-10] MEDS: valACYclovir 500 MG TAB PO SCH (09:21)
[2019-11-10] MEDS: PONATINIB HCL PO SCH (09:28)
[2019-11-10] MEDS: Rosuvastatin 10 MG TAB PO SCH (20:09)
[2019-11-10] MEDS: Artificial Tear Sol 15 ML BOT L EYE SCH (20:10)
[2019-11-10] MEDS: Latanoprost 0.005% Ophth Soln 2.5 ml Bottle EA EYE SCH (20:11)
--- NOTE | 2019-11-11 07:47 | PRG ---
DATE OF SERVICE: 11/10/2019 SUBJECTIVE: Patient feels well. No complaints. Lying in bed awaiting evaluation on Tuesday for his multiple skin surgeries for squamous cell carcinoma on his face. He is hoping to return here for PT, OT, but is negotiating with hospital as he has been released from PT at this time and may need to be on street basis. OBJECTIVE: VITAL SIGNS: Shows temperature is 98, pulse 69, respirations 18, O2 sats 98% on room air, blood pressure 126/62. LUNGS: Clear. CARDIAC: Shows regular rhythm. ABDOMEN: Soft and nontender. SKIN: Scalp lesion appears to be healing well. 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 ASSESSMENT: 1. Stable acute lymphocytic leukemia, status post chemotherapy. 2. Multiple skin cancers on the face, awaiting surgery. 3. Chronic anemia, being followed by [facility]. Follow up on Tuesday with IVIG. 4. Paraneoplastic syndrome, stable. PLAN: 1. Continue to discuss pain med strategy with hospital. 2. Continue wound care. 3. Continue nutritional support. 4. Follow up with [facility] on Tuesday. Job ID: [id number]
[2019-11-11] MEDS: levETIRAcetam 500 mg/5 ml Oral Solution PO SCH ×2 (08:48→21:44)
[2019-11-11] MEDS: valACYclovir 500 MG TAB PO SCH (08:48)
[2019-11-11] MEDS: Docusate 100 MG CAP PO SCH ×2 (08:48→21:44)
[2019-11-11] MEDS: Voriconazole 50 MG TAB PO SCH ×2 (08:50→21:45)
[2019-11-11] MEDS: Hydrocortisone Acetate 25 MG Suppository PR SCH ×2 (08:50→21:44)
[2019-11-11] MEDS: PONATINIB HCL PO SCH (08:51)
[2019-11-11] MEDS: Polyethylene Glycol 3350 17 GM Packet PO SCH (08:51)
[2019-11-11 16:30] VITALS: BMI 26.6
[2019-11-11] MEDS: Latanoprost 0.005% Ophth Soln 2.5 ml Bottle EA EYE SCH (21:43)
[2019-11-11] MEDS: Artificial Tear Sol 15 ML BOT L EYE SCH (21:43)
[2019-11-11] MEDS: Rosuvastatin 10 MG TAB PO SCH (21:46)
[2019-11-12] MEDS: Docusate 100 MG CAP PO SCH ×2 (06:37→21:35)
[2019-11-12] MEDS: Hydrocortisone Acetate 25 MG Suppository PR SCH ×2 (06:38→21:35)
[2019-11-12] MEDS: levETIRAcetam 500 mg/5 ml Oral Solution PO SCH ×2 (06:39→21:34)
[2019-11-12] MEDS: Voriconazole 50 MG TAB PO SCH ×2 (06:40→21:34)
[2019-11-12] MEDS: valACYclovir 500 MG TAB PO SCH (06:40)
[2019-11-12] MEDS: PONATINIB HCL PO SCH (06:41)
[2019-11-12] MEDS: Polyethylene Glycol 3350 17 GM Packet PO SCH (06:44)
[2019-11-12] MEDS: Artificial Tear Sol 15 ML BOT L EYE SCH (21:33)
[2019-11-12] MEDS: Rosuvastatin 10 MG TAB PO SCH (21:34)
[2019-11-12] MEDS: Latanoprost 0.005% Ophth Soln 2.5 ml Bottle EA EYE SCH (21:35)
[2019-11-12] MEDS: oxyCODONE 5 MG TAB PO PRN (21:40)
[2019-11-13] MEDS: levETIRAcetam 500 mg/5 ml Oral Solution PO SCH ×2 (09:09→21:13)
[2019-11-13] MEDS: Polyethylene Glycol 3350 17 GM Packet PO SCH (09:10)
[2019-11-13] MEDS: Hydrocortisone Acetate 25 MG Suppository PR SCH ×2 (09:10→21:13)
[2019-11-13] MEDS: Docusate 100 MG CAP PO SCH ×2 (09:11→21:13)
[2019-11-13] MEDS: Voriconazole 50 MG TAB PO SCH ×2 (09:11→21:15)
[2019-11-13] MEDS: valACYclovir 500 MG TAB PO SCH (09:11)
[2019-11-13] MEDS: PONATINIB HCL PO SCH (09:13)
--- NOTE | 2019-11-13 12:18 | PRG ---
DATE OF SERVICE: 11/13/2019 SUBJECTIVE: Mr. Gao visited [facility] yesterday and saw his neurologist. He apparently also got his IVIG. He is scheduled for surgical excision of his possible squamous cell cancer in his scalp this Tuesday. He is still unsure of the plans for him to be staying here. His neurologist did send a note for therapy, but it was for outpatient therapy. I also explained to the patient that even if it was for inpatient therapy, he was evaluated and discharged on Tuesday due to plateauing, so I doubt they were going to evaluate him again, but apparently the director software quality assurance is working on it. OBJECTIVE: VITAL SIGNS: The patient is afebrile, heart rate is 75, respirations 16, and blood pressure 126/74. CARDIOVASCULAR SYSTEM: S1 and S2 plus. RESPIRATORY SYSTEM: Normal vesicular breath sounds. ABDOMEN: Soft and nontender. Bowel sounds heard in all quadrants. EXTREMITIES: Without cyanosis or clubbing. CENTRAL NERVOUS SYSTEM: Generalized weakness. Grossly nonfocal. IMPRESSION: 1. Acute lymphocytic leukemia. 2. Seizure disorder. 3. Paraneoplastic syndrome. 4. Anemia, likely pancytopenia. 5. Hypertension. 6. Dyslipidemia. 7. Possible squamous cell carcinoma in his scalp. PLAN: 1. Continue current medications. 2. Nutritional support. 3. Monitor blood pressure. 4. Administration to decide on his discharge. 5. If he stays here, routine laboratory values. 6. Discussed with the patient. No family at bedside. Job ID: [id number]
[2019-11-13] MEDS: Latanoprost 0.005% Ophth Soln 2.5 ml Bottle EA EYE SCH (21:12)
[2019-11-13] MEDS: Artificial Tear Sol 15 ML BOT L EYE SCH (21:12)
[2019-11-13] MEDS: Rosuvastatin 10 MG TAB PO SCH (21:15)
[2019-11-13] MEDS: oxyCODONE 5 MG TAB PO PRN (21:15)
[2019-11-14] MEDS: levETIRAcetam 500 mg/5 ml Oral Solution PO SCH ×2 (09:38→22:07)
[2019-11-14] MEDS: valACYclovir 500 MG TAB PO SCH (09:39)
[2019-11-14] MEDS: Voriconazole 50 MG TAB PO SCH ×2 (09:39→22:06)
[2019-11-14] MEDS: Hydrocortisone Acetate 25 MG Suppository PR SCH (09:40)
[2019-11-14] MEDS: Polyethylene Glycol 3350 17 GM Packet PO SCH (09:40)
[2019-11-14] MEDS: PONATINIB HCL PO SCH (09:40)
[2019-11-14] MEDS: Docusate 100 MG CAP PO SCH ×2 (09:40→22:07)
--- NOTE | 2019-11-14 13:11 | PRG ---
DATE OF SERVICE: 11/14/2019 SUBJECTIVE: Mr. Gao is resting in bed. Denies any complaints. He is scheduled for outpatient surgery on Tuesday and he states that he has not gotten any answers from the hospital, but when I talked to the hospital administration, they said multiple people have talked to the patient and told him what the cost is going to be for him to be paying out of pocket and they had also advised him and his son that [facility] has also accepted him and the other option is to hire two 24/7 caregivers at home, which may be cheap. The patient and his son to make the final decision. OBJECTIVE: VITAL SIGNS: He is afebrile, heart rate 76, respirations 18, oxygen saturation 98% on room air, blood pressure 125/60. CARDIOVASCULAR: S1 and S2 plus. RESPIRATORY: Normal vesicular breath sounds. ABDOMEN: Soft and nontender. Bowel sounds heard in all quadrants. EXTREMITIES: Without cyanosis or clubbing. CENTRAL NERVOUS SYSTEM: Generalized weakness. IMPRESSION: 1. Acute lymphocytic leukemia. 2. Seizure disorder. 3. Pancytopenia. 4. Hypertension. 5. Dyslipidemia. 6. Possible squamous cell cancer to his scalp. PLAN: 1. Continue current medications. 2. Nutritional support. 3. Wound care. 4. Follow pre-surgical instructions from [facility]. 5. Anticipate discharging him on Tuesday unless the patient decides to pay out of pocket to come back here. Job ID: [id number]
[2019-11-14] MEDS ORDERED: Rosuvastatin 10 MG TAB PO SCH (21:00)
[2019-11-14] MEDS: Artificial Tear Sol 15 ML BOT L EYE SCH (22:04)
[2019-11-14] MEDS: Latanoprost 0.005% Ophth Soln 2.5 ml Bottle EA EYE SCH (22:04)
[2019-11-14] MEDS: oxyCODONE 5 MG TAB PO PRN (22:15)
[2019-11-15] MEDS: Voriconazole 50 MG TAB PO SCH ×2 (08:59→21:44)
[2019-11-15] MEDS: valACYclovir 500 MG TAB PO SCH (08:59)
[2019-11-15] MEDS: Docusate 100 MG CAP PO SCH ×2 (08:59→21:45)
[2019-11-15] MEDS: levETIRAcetam 500 mg/5 ml Oral Solution PO SCH ×2 (09:00→21:45)
[2019-11-15] MEDS: Polyethylene Glycol 3350 17 GM Packet PO SCH (09:00)
--- NOTE | 2019-11-15 13:48 | PRG ---
DATE OF SERVICE: 11/15/2019 SUBJECTIVE: Mr. Gao is resting in bed. 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 He still states that he has not heard from anybody in administration about his stay and I explained to him that when I talked to them yesterday, they said that they had spoken to him multiple times. I advised him that if he is not clear, he probably should have the nursing put in a request for administration to talk to him directly instead of me being to go in between. OBJECTIVE: VITAL SIGNS: He is afebrile, heart rate 88, respirations 20, oxygen saturation 94% on room air, blood pressure 117/58. CARDIOVASCULAR SYSTEM: S1 and S2 plus. RESPIRATORY SYSTEM: Normal vesicular breath sounds. ABDOMEN: Soft, nontender. Bowel sounds are heard in all quadrants EXTREMITIES: Without cyanosis or clubbing. IMPRESSION: 1. Acute lymphocytic leukemia. 2. Seizure disorder. 3. Hypertension. 4. Dyslipidemia. 5. Pancytopenia. 6. Deconditioning. PLAN: 1. Continue current medications. 2. Hold couple of his medications per instructions from the surgeon. 3. Nutritional support. 4. The patient to talk to administration to clarify his discharge plan. 5. He states that he wants to come back here and stay here through the weekend and then go to [facility] on Tuesday. 6. Decubitus precautions. 7. Continue stress ulcer prophylaxis. 8. No family at bedside. Job ID: [id number]
[2019-11-15] MEDS ORDERED: Calcium Carbonate 500 MG ChewTAB PO PRN (19:59)
[2019-11-15] MEDS: oxyCODONE 5 MG TAB PO PRN (20:09)
[2019-11-15] MEDS: Latanoprost 0.005% Ophth Soln 2.5 ml Bottle EA EYE SCH (21:42)
[2019-11-15] MEDS: Artificial Tear Sol 15 ML BOT L EYE SCH (21:42)
[2019-11-16] MEDS: Docusate 100 MG CAP PO SCH ×2 (09:01→23:06)
[2019-11-16] MEDS: valACYclovir 500 MG TAB PO SCH (09:01)
[2019-11-16] MEDS: levETIRAcetam 500 mg/5 ml Oral Solution PO SCH ×2 (09:02→23:08)
[2019-11-16] MEDS: Polyethylene Glycol 3350 17 GM Packet PO SCH (09:02)
[2019-11-16] MEDS: Voriconazole 50 MG TAB PO SCH ×2 (09:02→23:08)
[2019-11-16] MEDS: Rosuvastatin 10 MG TAB PO SCH (23:06)
[2019-11-16] MEDS: Artificial Tear Sol 15 ML BOT L EYE SCH (23:13)
[2019-11-16] MEDS: Latanoprost 0.005% Ophth Soln 2.5 ml Bottle EA EYE SCH (23:13)
[2019-11-16] MEDS: oxyCODONE 5 MG TAB PO PRN (23:27)
[2019-11-17] MEDS: Polyethylene Glycol 3350 17 GM Packet PO SCH (08:16)
[2019-11-17] MEDS: Docusate 100 MG CAP PO SCH ×2 (08:17→21:16)
[2019-11-17] MEDS: levETIRAcetam 500 mg/5 ml Oral Solution PO SCH ×2 (08:18→21:15)
[2019-11-17] MEDS: valACYclovir 500 MG TAB PO SCH (08:18)
[2019-11-17] MEDS ORDERED: traMADol HCl 50 MG TAB PO PRN (19:43)
[2019-11-17] MEDS ORDERED: Mupirocin 2% Ointment 22 GM Tube TOP PRN (19:44)
[2019-11-17] MEDS ORDERED: VENETOCLAX 100 MG PO SCH (19:45)
[2019-11-17] MEDS: Latanoprost 0.005% Ophth Soln 2.5 ml Bottle EA EYE SCH (21:12)
[2019-11-17] MEDS: Artificial Tear Sol 15 ML BOT L EYE SCH (21:12)
[2019-11-17] MEDS: Voriconazole 50 MG TAB PO SCH (21:14)
[2019-11-17] MEDS: Rosuvastatin 10 MG TAB PO SCH (21:14)
[2019-11-17] MEDS: Cephalexin 500 MG CAP PO SCH (21:15)
[2019-11-17] MEDS: CEFPODOXIME PROXETIL 200 MG PO SCH (21:17)
[2019-11-18] MEDS: levETIRAcetam 500 mg/5 ml Oral Solution PO SCH ×2 (08:16→21:31)
[2019-11-18] MEDS: Docusate 100 MG CAP PO SCH ×2 (08:16→21:39)
[2019-11-18] MEDS: Polyethylene Glycol 3350 17 GM Packet PO SCH (08:17)
[2019-11-18] MEDS: Voriconazole 50 MG TAB PO SCH ×2 (08:17→21:35)
[2019-11-18] MEDS: valACYclovir 500 MG TAB PO SCH (08:17)
[2019-11-18] MEDS: PONATINIB HCL PO SCH (08:20)
[2019-11-18] MEDS: Cephalexin 500 MG CAP PO SCH ×3 (08:21→21:38)
[2019-11-18] MEDS: CEFPODOXIME PROXETIL 200 MG PO SCH ×2 (08:22→21:39)
[2019-11-18] MEDS ORDERED: PONATINIB HCL PO SCH (09:00)
--- NOTE | 2019-11-18 16:36 | PRG ---
DATE OF SERVICE: 11/18/2019 SUBJECTIVE: Mr. Gao is up in bed and denies any concerns. Discussed with nursing. There apparently was some confusion with some home medications his [id number] bought in yesterday, but that has been clarified. We have waiting clarification on his Vantin from [facility]. OBJECTIVE: VITAL SIGNS: He is afebrile. Heart rate is 64, respirations 18, oxygen saturation 98% on room air, blood pressure 119/60. CARDIOVASCULAR: S1 and S2 plus. RESPIRATORY: Normal vesicular breath sounds. ABDOMEN: Soft, nontender. Bowel sounds heard in all quadrants. EXTREMITIES: Without cyanosis or clubbing. IMPRESSION: 1. Hypertension. 2. Dyslipidemia. 3. Acute lymphocytic leukemia. 4. Seizure disorder. 5. Deconditioning. PLAN: 1. Continue current medications. 2. Heart healthy diet. 3. Wound care. 4. Clarify Vantin with [facility]. 5. Anticipate discharge to [facility] tomorrow. 6. Discussed with the patient and nursing in detail. Job ID: [id number]
--- NOTE | 2019-11-18 17:01 | PRG ---
DATE OF SERVICE: 11/17/2019 SUBJECTIVE: Mr. Gao is doing well. He got back late Tuesday after having his excision of his cancerous tumor with placement of a skin graft. Reviewed discharge instructions and they do not want anyone touching the dressing until he follows up with the surgeon. He is supposed to be on Keflex t.i.d. He has decided to go to [facility] on Tuesday or Tuesday. No other concerns or questions. OBJECTIVE: VITAL SIGNS: He is afebrile, heart rate is 80, respirations 16, oxygen saturation 96% on room air, and blood pressure 113/54. CARDIOVASCULAR: S1 and S2 plus. RESPIRATORY: Normal vesicular breath sounds. ABDOMEN: Soft, nontender. Bowel sounds heard all quadrants. EXTREMITIES: Without cyanosis or clubbing. HEENT: Right temporal area dressing in the scalp. CENTRAL NERVOUS SYSTEM: Generalized weakness, otherwise nonfocal. IMPRESSION: 1. Acute lymphocytic leukemia. 2. Hypertension. 3. Dyslipidemia. 4. Seizure disorder. 5. 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 6. Deconditioning. PLAN: 1. Continue current medications. 2. Nutritional support. 3. Resume medications per instructions from [facility]. I am not sure why they want him on Keflex as well as Vantin. I advised nursing to contact [facility] to get clarification on that. 4. Routine laboratory values. 5. Discharge planning. 6. DVT and stress ulcer prophylaxis. Job ID: [id number]
[2019-11-18] MEDS: Latanoprost 0.005% Ophth Soln 2.5 ml Bottle EA EYE SCH (21:32)
[2019-11-18] MEDS: Artificial Tear Sol 15 ML BOT L EYE SCH (21:32)
[2019-11-18] MEDS: Rosuvastatin 10 MG TAB PO SCH (21:35)
[2019-11-19 07:58] VITALS: BP 131/63; TEMP 96.1
[2019-11-19] MEDS: levETIRAcetam 500 mg/5 ml Oral Solution PO SCH (09:36)
[2019-11-19] MEDS: valACYclovir 500 MG TAB PO SCH (09:36)
[2019-11-19] MEDS: Voriconazole 50 MG TAB PO SCH (09:36)
[2019-11-19] MEDS: Docusate 100 MG CAP PO SCH (09:37)
[2019-11-19] MEDS: Cephalexin 500 MG CAP PO SCH (09:37)
[2019-11-19] MEDS: Polyethylene Glycol 3350 17 GM Packet PO SCH (09:38)
[2019-11-19] MEDS: PONATINIB HCL PO SCH (09:43)
[2019-11-19] MEDS: CEFPODOXIME PROXETIL 200 MG PO SCH (09:44)
--- NOTE | 2019-11-19 13:28 | DIS ---
DATE OF ADMISSION: 10/05/2019 DATE OF DISCHARGE: 11/19/2019 PRINCIPAL DIAGNOSIS: Acute lymphocytic leukemia. SECONDARY DIAGNOSES: 1. Seizure disorder. 2. Hypertension. 3. Dyslipidemia. 4. History of deep venous thrombosis, status post inferior vena cava filter placement. 5. History of pulmonary embolism. 6. Chemotherapy-induced neuropathy and myopathy. 7. Anemia of chronic disease. 8. Glaucoma. 9. Deconditioning. 10. 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 COMPLICATIONS: None. ADVERSE REACTIONS: None. PROCEDURES PERFORMED: None. CONSULTATIONS: Physical Therapy and Occupational Therapy. HOSPITAL COURSE: The patient was admitted on 10/05/2019, with the diagnosis of acute lymphocytic leukemia and persistent deconditioning despite inpatient rehabilitation. He was felt to be a candidate for skilled bed and was started on therapy. He had multiple visits to [facility] for followup on his leukemia and his seizure disorder. He did not have any breakthrough seizures while he was with us. He continued to improve gradually, but then he plateaued. He was felt to not meet any skilled services and so is being discharged. Family states they cannot take care of him at home, so he is actually going to go to [facility] and then hopefully improve enough to go home from there. During his stay, he did have the possible squamous cell cancer from his scalp removed and had a skin graft placed. PHYSICAL EXAMINATION: On the day of discharge, VITAL SIGNS: He is afebrile. Heart rate is 60, respirations 16, oxygen saturation 99% on room air, blood pressure 131/63. CARDIOVASCULAR: S1 and S2 plus. RESPIRATORY: Normal vesicular breath sounds. ABDOMEN: Soft and nontender. Bowel sounds heard in all quadrants. EXTREMITIES: Without cyanosis or clubbing. CENTRAL NERVOUS SYSTEM: Persistent generalized weakness, mainly balance issues. HEENT: Dressing over the right temporal area, where he had the tumor removed and skin graft placed. He does have the superficial healing wound in the top of his scalp. DISCHARGE MEDICATIONS: The important ones: 1. Keflex 500 mg t.i.d. for a total of 10 days. 2. Colace 100 mg b.i.d. 3. Xalatan eye drops 1 drop to each eye at bedtime. 4. Keppra 750 mg b.i.d. 5. Toprol-XL 12.5 mg b.i.d. 6. Oxycodone 10 mg q.8 hours p.r.n. The patient has his own prescription bottle for it. 7. Pantoprazole 40 mg b.i.d. 8. Iclusig, home medication. The patient has it. 9. MiraLAX 17 g in 8 ounces of water daily. 10. Crestor 5 mg at bedtime. 11. Tramadol 50 mg q.6 p.r.n. 12. Valtrex 500 mg daily. 13. Voriconazole 200 mg p.o. b.i.d. DISCHARGE INSTRUCTIONS: The patient to be on a heart-healthy diet. He will have PT and OT evaluation and treatment. He will continue to follow up with [facility]. Discharge instructions from [facility] copy has been given to the patient. He is to call us with any questions or concerns. He does not need any prescriptions, and he will be followed by probably the medical voucher clerk at [facility]. For full details, please see chart. TIME SPENT: Total time spent on this discharge, 35 minutes. Job ID: [id number]
== END 2019-11-19 14:20 | DRG 835 ==
LOC: NAV ACUTE 15:16
PROVIDERS: ADMIT Internal Medicine; ATTEND Internal Medicine
DX: C91.00 Acute lymphoblastic leukemia not having achieved remission (principal); G72.0 Drug-induced myopathy; G40.909 Epilepsy, unspecified, not intractable, without status epilepticus; E78.5 Hyperlipidemia, unspecified; I10 Essential (primary) hypertension; T45.1X5A Adverse effect of antineoplastic and immunosuppressive drugs, initial encounter; D63.8 Anemia in other chronic diseases classified elsewhere; H40.9 Unspecified glaucoma; R53.81 Other malaise; G62.9 Polyneuropathy, unspecified; C44.42 Squamous cell carcinoma of skin of scalp and neck; Z86.718 Personal history of other venous thrombosis and embolism; Z79.01 Long term (current) use of anticoagulants; Z86.711 Personal history of pulmonary embolism
CPT/HCPCS: 36415; 71045; 80048; 80053; 81001; 85025; 87040; 87070; 87081; 87086; 87205; 87430; 87804